=== PATIENT | male | born 1970 | race Caucasian/White ===

== ENCOUNTER 2022-11-22 09:43 | Outpatient (CLI) | payer BC, SELFPAY ==
[2022-11-22 15:35] LABS: Basophils Percent Auto 0.7 % (0.2-1.2); Eosinophils Absolute Auto 0.2 K/mm3 (0-0.3); Eosinophils Percent Auto 3.3 % (0-4.4); Hemoglobin 15.3 g/dL (14.0-18.0); Immature Granulocyte Absolute 0.01 K/mm3 (0.00-0.031); Immature Granulocyte Percent A 0.2 % (0-0.5); Lymphocytes Absolute Auto 1.19 K/mm3 (0.9-3.2); Lymphocytes Percent Auto 21.7 % (18.3-44.2); Mean Corpuscular HGB Conc 33.3 g/dl (32-36); Mean Corpuscular Hemoglobin 30.2 pg (26-34); Mean Corpuscular Volume 90.7 fl (80-100); Monocytes Absolute Auto 0.5 K/mm3 (0.1-0.6); Monocytes Percent Auto 8.9 % (2.6-8.5); Neutrophils Absolute Auto 3.6 K/mm3 (1.3-6.7); Neutrophils Percent Auto 65.2 % (45.5-73.1); Platelet Count Result 241 k/mm3 (150-375); Red Blood Count 5.07 M/mm3 (4.6-6.20); Red Cell Distribution Width 13.2 % (11.5-14.5); White Blood Count 5.5 K/mm3 (4.5-10.0)
[2022-11-22 18:54] LABS: Alanine Aminotransferase 29 U/L (6-50); Albumin Level 4.6 g/dL (3.5-5.1); Alkaline Phosphatase 67 U/L (38-126); Anion Gap 7 mmol/L (8-16); Aspartate Amino Transferase 30 U/L (17-59); Bilirubin,Total 0.5 mg/dL (0.2-1.3); Blood Urea Nitrogen 15 mg/dL (9-20); Carbon Dioxide 28 mmol/L (22-30); Chloride 105 mmol/L (98-107); Cholesterol 240 mg/dL (0-200); Estimated Glomerular Filt Rate > 60; Glucose 95 mg/dL (65-110); HDL Direct 39 mg/dL; Potassium 3.9 mmol/L (3.4-5.0); Sodium 140 mmol/L (137-145); Triglycerides 167 mg/dL (<150)
[2022-11-22 19:05] LABS: LDL Cholesterol Direct 146 mg/dL
[2022-11-22 19:24] LABS: Prostate Specific Antigen 0.4 ng/mL (< OR = 4.0)
== END 2022-11-22 09:44 | disposition home or self-care (01) ==
LOC: ANHGOSHLAB 09:45
PROVIDERS: PCP Internal Medicine; Visit Provider Nurse Practitioner
DX: Z12.5 Encounter for screening for malignant neoplasm of prostate (principal); I10 Essential (primary) hypertension; F17.210 Nicotine dependence, cigarettes, uncomplicated
CPT/HCPCS: 36415; 80053; 80061; 84153; 85025; G0103

== ENCOUNTER 2024-08-07 09:10 | Outpatient (CLI) | payer BC, SELFPAY ==
[2024-08-07 12:49] LABS: Basophils Percent Auto 0.5 % (0.2-1.2); Eosinophils Absolute Auto 0.2 K/mm3 (0-0.3); Eosinophils Percent Auto 3.5 % (0-4.4); Hematocrit 41.8 % (42.0-52.0); Hemoglobin 14.1 g/dL (14.0-18.0); Immature Granulocyte Absolute 0.03 K/mm3 (0.00-0.031); Immature Granulocyte Percent A 0.5 % (0-0.5); Lymphocytes Percent Auto 19.3 % (18.3-44.2); Mean Corpuscular HGB Conc 33.7 g/dl (32-36); Mean Corpuscular Hemoglobin 30.7 pg (26-34); Mean Corpuscular Volume 91.1 fl (80-100); Monocytes Absolute Auto 0.6 K/mm3 (0.1-0.6); Neutrophils Absolute Auto 4.2 K/mm3 (1.3-6.7); Neutrophils Percent Auto 67.2 % (45.5-73.1); Platelet Count Result 250 k/mm3 (150-375); Red Blood Count 4.59 M/mm3 (4.6-6.20); Red Cell Distribution Width 12.9 % (11.5-14.5); White Blood Count 6.2 K/mm3 (4.5-10.0)
[2024-08-07 13:35] LABS: Alanine Aminotransferase 32 U/L (6-50); Albumin Level 4.2 g/dL (3.5-5.1); Alkaline Phosphatase 63 U/L (38-126); Anion Gap 9 mmol/L (4-12); Aspartate Amino Transferase 38 U/L (17-59); Bilirubin,Total 0.4 mg/dL (0.2-1.3); Blood Urea Nitrogen 22 mg/dL (9-20); Calcium 9.3 mg/dL (8.4-10.2); Carbon Dioxide 29 mmol/L (22-30); Chloride 101 mmol/L (98-107); Cholesterol 227 mg/dL (0-200); Estimated Glomerular Filt Rate > 60; Glucose 97 mg/dL (65-110); HDL Direct 41 mg/dL; Potassium 3.9 mmol/L (3.4-5.0); Sodium 139 mmol/L (137-145); Triglycerides 168 mg/dL (<150)
[2024-08-07 13:48] LABS: LDL Cholesterol Direct 133 mg/dL
[2024-08-07 14:05] LABS: Prostate Specific Antigen 0.5 ng/mL (< OR = 4.0)
[2024-08-14 15:58] LABS: Apolipoprotein B 139 mg/dL
== END 2024-08-07 09:11 | disposition home or self-care (01) ==
LOC: ANHGOSHLAB 09:12
PROVIDERS: PCP Nurse Practitioner; Visit Provider Nurse Practitioner
DX: Z13.29 Encounter for screening for other suspected endocrine disorder (principal); Z12.5 Encounter for screening for malignant neoplasm of prostate; E78.5 Hyperlipidemia, unspecified
CPT/HCPCS: 36415; 80053; 80061; 82172; 84153; 85025; G0103

== ENCOUNTER 2024-08-12 10:10 | Outpatient (NON) | payer BC, SELFPAY ==
[2024-08-12 20:01] LABS: Bacteria Urine 4+ /hpf; Need Manual Microscopic Reviewed; RBC Urine >100 /hpf (0-2); Squamous Epithelial Cell Urine Occasional /hpf (Few); WBC Urine >100 /hpf (0-3)
[2024-08-12 20:05] LABS: Add Urine Microscopic? YES; Appearance Urine Turbid (Clear); Bilirubin Urine Negative (Negative); Blood Urine 3+ (Negative); Color Urine Amber (Yellow); Glucose Urine UA Negative (Negative); Ketones Urine Negative (Negative); Leukocyte Esterase Ur 3+ LEU/UL (Negative); Nitrate Urine Negative (Negative); Protein Urine 3+ mg/dL (Negative); Specific Grav Ur 1.017 (1.001-1.035); pH Urine 6.5 (5.0-9.0)
== END 2024-08-12 10:11 | disposition home or self-care (01) ==
LOC: ANHGOSHLAB 10:12
PROVIDERS: PCP Nurse Practitioner; Visit Provider Nurse Practitioner
DX: R31.9 Hematuria, unspecified (principal); R10.9 Unspecified abdominal pain; R39.9 Unspecified symptoms and signs involving the genitourinary system
CPT/HCPCS: 81001; 87086

== ENCOUNTER 2024-08-21 10:37 | Inpatient (IN) | payer BC, SELFPAY ==
--- NOTE | ~2024-08-21 | US_ITS ---
EXAMINATION: US retroperitoneal comp DATE: 08/22/2024 10:03 INDICATION: Hydronephrosis. Bladder hematoma. TECHNIQUE: Multiple ultrasound grayscale images of the kidneys were obtained. COMPARISON: CT abdomen and pelvis 08/21/2024 FINDINGS: The right kidney measures 11.1 x 5.9 x 4.6 cm. The left kidney measures 12.0 x 6.6 x 5.3 cm. The kidn eys demonstrate normal parenchymal echogenicity. There is moderate bilateral hydronephrosis. The blad rodriguez is decompressed by a Ogden catheter. There is a small volume of echogenic material in the bladder , consistent with hematoma. The prostate is severely enlarged. IMPRESSION: 1. Moderate bilateral hydronephrosis. 2. Small volume of hematoma in the bladder. 3. Severely enlarged prostate. Reviewed, dictated and finalized at location A. T UTILITY PERSON
--- NOTE | ~2024-08-21 | XR_ITS ---
EXAMINATION: XR fluoroscopy no charge DATE: 08/23/2024 14:28 INDICATION: Tanning Drum Operator imaging prior to urologic procedure. TECHNIQUE: 2 fluoroscopic images of the abdomen and pelvis were obtained during procedure performed b y Dr. Gaines's. Radiologist was not present for the imaging or procedure. The amount of fluoroscopy ti me used during this procedure was 0.1 minutes. COMPARISON: None. FINDINGS: There are couple phleboliths in the left hemipelvis. No other suspicious calcifications in the abdomen or pelvis. Normal bowel gas pattern. IMPRESSION: 1. Couple phleboliths in the left hemipelvis. See procedure note for further detail. Reviewed, dictated and finalized at location B. NEERING TECH IMPRESSION: 1. Couple phleboliths in the left hemipelvis. See procedure note for further de tail.
--- NOTE | ~2024-08-21 | CT_ITS ---
EXAMINATION: CT abdomen pelvis wo con DATE: 08/21/2024 14:07 INDICATION: Flank pain. Acute renal injury. TECHNIQUE: Computed tomography (CT) of the abdomen and pelvis was performed without intravenous contr ast. Automated exposure control and iterative reconstruction technique were employed. The dose-length product was 743.44 mGy-cm. COMPARISON: None. FINDINGS: The visualized portions of the lung bases demonstrate minimal atelectasis. No pleural effus ion. The heart size is normal. No pericardial effusion. There is a small sliding hiatal hernia. The l iver and spleen are normal. There is a gallstone in the gallbladder, which is normal in size. The kaufman creas and adrenal glands are normal. There is moderate right hydronephrosis and hydroureter. There is severe left hydronephrosis and hydroureter. The prostate is severely enlarged. There is hyperdense a cute hematoma in the bladder. There is a Ogden catheter in expected position. There is diverticulosis of the colon without evidence of diverticulitis. There are no dilated loops of bowel. The appendix i s normal. There is no free intraperitoneal fluid. There is bilateral external iliac lymphadenopathy. For example, a right external iliac node measures 2.8 x 2.2 cm. A right common iliac node measures 2. 4 x 2.0 cm. There is severe lower lumbar spondylosis. Small sclerotic lesions in right ilium, right f emoral head, and T12 vertebral body are probably benign bone islands. IMPRESSION: 1. Acute hematoma in the bladder. 2. Moderate right hydronephrosis and hydroureter and severe left hydronephrosis and hydroureter. 3. Severely enlarged prostate. 4. Pelvic lymphadenopathy suspicious for metastatic disease. Reviewed, dictated and finalized at location A. [facility]
[2024-08-21 10:39] VITALS: BP 171/100; PULSE 88; RESP 16; TEMP 36.6; O2SAT 99
[2024-08-21 11:31] LABS: Basophils Percent Auto 0.2 % (0.2-1.2); Eosinophils Absolute Auto 0.1 K/mm3 (0-0.3); Eosinophils Percent Auto 0.7 % (0-4.4); Hematocrit 36.3 % (42.0-52.0); Hemoglobin 12.5 g/dL (14.0-18.0); Immature Granulocyte Absolute 0.03 K/mm3 (0.00-0.031); Immature Granulocyte Percent A 0.3 % (0-0.5); Lymphocytes Absolute Auto 1.04 K/mm3 (0.9-3.2); Lymphocytes Percent Auto 10.6 % (18.3-44.2); Mean Corpuscular HGB Conc 34.4 g/dl (32-36); Mean Corpuscular Hemoglobin 30.7 pg (26-34); Mean Corpuscular Volume 89.2 fl (80-100); Mean Platelet Volume 9.9 fl (7.4-10.4); Monocytes Percent Auto 9.7 % (2.6-8.5); Neutrophils Absolute Auto 7.7 K/mm3 (1.3-6.7); Neutrophils Percent Auto 78.5 % (45.5-73.1); Platelet Count Result 248 k/mm3 (150-375); Red Blood Count 4.07 M/mm3 (4.6-6.20); Red Cell Distribution Width 12.5 % (11.5-14.5); White Blood Count 9.8 K/mm3 (4.5-10.0)
[2024-08-21 11:44] LABS: Add Urine Microscopic? YES; Appearance Urine Turbid (Clear); Bacteria Urine 3+ /hpf; Bilirubin Urine Negative (Negative); Blood Urine 3+ (Negative); Glucose Urine UA Negative (Negative); Ketones Urine Trace mg/dL (Negative); Leukocyte Esterase Ur 2+ LEU/UL (Negative); Need Manual Microscopic Reviewed; Nitrate Urine Negative (Negative); Non Pathogenic Casts 0-2; Protein Urine 3+ mg/dL (Negative); RBC Urine >100 /hpf (0-2); Specific Grav Ur 1.009 (1.001-1.035); Squamous Epithelial Cell Urine Occasional /hpf (Few); Urobilinogen Urine 0.2 mg/dL (<2.0); WBC Urine >100 /hpf (0-3)
[2024-08-21 11:44] LABS: Alanine Aminotransferase 26 U/L (6-50); Albumin Level 4.2 g/dL (3.5-5.1); Alkaline Phosphatase 70 U/L (38-126); Anion Gap 13 mmol/L (4-12); Aspartate Amino Transferase 34 U/L (17-59); Bilirubin,Total 0.6 mg/dL (0.2-1.3); Blood Urea Nitrogen 43 mg/dL (9-20); Calcium 9.3 mg/dL (8.4-10.2); Carbon Dioxide 28 mmol/L (22-30); Chloride 97 mmol/L (98-107); Estimated CRCL calculation 16 ml/min; Estimated Glomerular Filt Rate 12; Glucose 89 mg/dL (65-110); Lipase 61 U/L (23-300); Potassium 3.6 mmol/L (3.4-5.0); Sodium 138 mmol/L (137-145)
[2024-08-21 11:46] LABS: Color Urine Other (Yellow)
--- NOTE | 2024-08-21 11:58 | ED.GENADULT ---
HPI - General Adult General Chief complaint: Urogenital-Male Stated complaint: right klower back pain Time Seen by Provider: 08/21/24 11:10 History of Present Illness HPI narrative: 54-year-old male presents emergency department for evaluation for urinary retention and right flank pain. Patient states over the past few days he has had increased right flank pain. Patient states he does have issues with frequent urination at night time. Patient does describe suprapubic abdominal pain. Related Data Home Medications Medication Instructions Recorded Confirmed cetirizine 10 mg tablet (Zyrtec) 10 mg PO DAILY 08/21/24 08/21/24 Allergies Allergy/AdvReac Type Severity Reaction Status Date / Time banana Allergy Mild Itching Verified 08/21/24 14:21 No Known Drug Allergies Allergy Unknown Verified 08/21/24 14:21 Review of Systems Review of Systems: All systems reviewed & are unremarkable except as noted in HPI and below PMFSH Past Medical History Medical History HTN (hypertension) Hyperlipidemia Kidney stones Surgical History Surgical History No significant past surgical history Family History Family History Mother CHF (congestive heart failure) Social History Social History Years smoked: 17 Smoking status: Current every day smoker Alcohol intake: current Alcohol use details: occasionally Substance use: current Substance use type: marijuana Do You Feel Safe in your Home?: Yes Lack of Transportation: No Lack of Food: Never True Current Housing: I Have Housing Concerned About Future Housing: No Difficulty Paying Gas/Electric Bills: No Difficulty Paying for Meds: No Currently Unemployed: No Education: High School Diploma/GED Difficulty w/ Childcare or Family Care: No Spiritual care concerns: No Exam Narrative: APPEARANCE: Well appearing, no pain, no distress, well-nourished. HEAD: normocephalic, atraumatic. EYES: PERRLA/EOMI, conjunctivae clear. NOSE: Normal no drainage EARS:TMS clear with good light reflex. THROAT: Pharynx clear, no exudate. NECK: Supple. No adenopathy, no masses. RESPIRATORY: Airway patent, respirations nonlabored. Clear to auscultation bilaterally, no rales, rhonchi, wheezing. CARDIOVASCULAR: Regular rate and rhythm without murmurs rubs or gallops. ABDOMINAL: Soft, nontender, nondistended, normal bowel sounds MUSCULOSKELETAL: Moves all extremities. Strength/ROM intact, No edema, No calf tenderness. NEURO: Alert. Cranial nerves II through XII intact. Course Vital Signs Vital signs: Vital Signs Temperature 97.8 F 08/21/24 10:39 Pulse Rate 88 08/21/24 10:39 Respiratory Rate 16 08/21/24 10:39 Blood Pressure 171/100 H 08/21/24 10:39 Pulse Oximetry 99 08/21/24 10:39 Temperature 98.1 F 08/21/24 14:00 Pulse Rate 68 08/21/24 14:00 Respiratory Rate 18 08/21/24 14:00 Blood Pressure 120/45 L 08/21/24 14:00 Pulse Oximetry 98 08/21/24 14:00 Oxygen Delivery Room Air 08/21/24 15:43 Medical Decision Making MDM Narrative Medical decision making narrative: 54-year-old male presents emergency department for evaluation for urinary pain and difficulty urinating. Patient is afebrile with no leukocytosis and hemoglobin of 12.5. Patient does have significant acute kidney injury with a creatinine of 5.2 and BUN of 43. patient did have greater than 500 mL postvoid residual urine. Ogden catheter was placed. Urine was significant for urinary tract infection patient was started on antibiotics, urine cultures pending. Nephrology was consulted due to the acute kidney injury. patient was admitted to the hospitalist. All questions concerns were addressed to the patient. Differential Diagnosis Differential Diagnosis: Kidney stone, UTI, obstructive uropathy, urinary retention Vital Signs Vital Signs: Vital Signs Temperature 97.8 F 08/21/24 10:39 Pulse Rate 88 08/21/24 10:39 Respiratory Rate 16 08/21/24 10:39 Blood Pressure 171/100 H 08/21/24 10:39 Pulse Oximetry 99 08/21/24 10:39 Temperature 98.1 F 08/21/24 14:00 Pulse Rate 68 08/21/24 14:00 Respiratory Rate 18 08/21/24 14:00 Blood Pressure 120/45 L 08/21/24 14:00 Pulse Oximetry 98 08/21/24 14:00 Oxygen Delivery Room Air 08/21/24 15:43 Lab Data Lab results reviewed: Yes I reviewed the patient's lab results. 08/21/24 11:22 08/21/24 11:22 Labs: Lab Results 08/21/24 08/21/24 Range/Units 11:21 11:22 WBC 9.8 (4.5-10.0) K/mm3 RBC 4.07 L (4.6-6.20) M/mm3 Hgb 12.5 L (14.0-18.0) g/dL Hct 36.3 L (42.0-52.0) % MCV 89.2 (80-100) fl MCH 30.7 (26-34) pg MCHC 34.4 (32-36) g/dl RDW 12.5 (11.5-14.5) % Plt Count 248 (150-375) k/mm3 MPV 9.9 (7.4-10.4) fl Immature Gran % (Auto) 0.3 (0-0.5) % Neut % (Auto) 78.5 H (45.5-73.1) % Lymph % (Auto) 10.6 L (18.3-44.2) % Wilkin % (Auto) 9.7 H (2.6-8.5) % Eos % (Auto) 0.7 (0-4.4) % Baso % (Auto) 0.2 (0.2-1.2) % Lymph # (Auto) 1.04 (0.9-3.2) K/mm3 Wilkin # (Auto) 1.0 H (0.1-0.6) K/mm3 Eos # (Auto) 0.1 (0-0.3) K/mm3 Baso # (Auto) 0.0 (0.0-0.1) K/mm3 Abs Immat Gran (auto) 0.03 (0.00-0.031) K/mm3 Absolute Neuts (auto) 7.7 H (1.3-6.7) K/mm3 Absolute Nucleated RBC 0.000 (0.0-0.012) K/mm3 Nucleated RBC % 0.0 (0.0-0.2) % Sodium 138 (137-145) mmol/L Potassium 3.6 (3.4-5.0) mmol/L Chloride 97 L (98-107) mmol/L Carbon Dioxide 28 (22-30) mmol/L Anion Gap 13 H (4-12) mmol/L BUN 43 H D (9-20) mg/dL Creatinine 5.20 H (0.7-1.3) mg/dL Estim Creat Clear Calc 16 ml/min Estimated GFR 12 L (59 - ) Glucose 89 (65-110) mg/dL Calcium 9.3 (8.4-10.2) mg/dL Total Bilirubin 0.6 (0.2-1.3) mg/dL AST 34 (17-59) U/L ALT 26 (6-50) U/L Alkaline Phosphatase 70 (38-126) U/L Total Protein 7.0 (6.3-8.2) g/dL Albumin 4.2 (3.5-5.1) g/dL Lipase 61 (23-300) U/L Urine Color Other (Yellow) Urine Appearance Turbid H (Clear) Urine pH 6.0 (5.0-9.0) Ur Specific [place] 1.009 (1.001-1.035) Urine Protein 3+ H (Negative) mg/dL Urine Glucose (UA) Negative (Negative) mg/dL Urine Ketones Trace H (Negative) mg/dL Ur Blood (Man) 3+ H (Negative) Urine Nitrate Negative (Negative) Urine Bilirubin Negative (Negative) Urine Urobilinogen 0.2 (<2.0) mg/dL Add Ur Microanalysis Reviewed Leukocyte Esterase Rfl 2+ H (Negative) EVONNE/UL Urine RBC >100 H (0-2) /hpf Urine WBC >100 H (0-3) /hpf Ur Squamous Epith Cells Occasional (Few) /hpf Urine Bacteria 3+ H /hpf Urine Casts 0-2 Discharge Plan Discharge Clinical Impression: Urinary retention, Hematuria, Acute renal failure, Urinary tract infection Patient Disposition: Still a Patient Condition: Serious
[2024-08-21] MEDS: TAMSULOSIN HCL 0.4 MG CAPSULE PO (12:51)
[2024-08-21 13:21] VITALS: BP 158/108; PULSE 85; RESP 18; O2SAT 96
[2024-08-21] MEDS: SODIUM CHLORIDE 0.9% IV 1,000 ML 999 ML IV CONT (13:21)
--- NOTE | 2024-08-21 13:40 | PM.IMHP ---
H&P: HPI History of Present Illness Date/Time: 08/21/24 13:40 Chief Complaint: Flank Pain Narrative: 54 y/o M presents here with flank pain with PMH of HTN, HLD, and kidney stones. The patient presents here from home for further evaluation of right flank pain. He reports onset approximately 3-4 days ago. Accompanied by suprapubic abdominal pain, frequent urination, difficulty initiating stream, constipation. Last BM was 4-5 days ago, has had reduced appetite in the last few days, did pass very small BM this evening. Denies fever, chills, body chills, or diarrhea. Patient originally sought care with his PCP on 08/12/2024 for similar complaints including urinary issues, hematuria, urinary frequency, and suprapubic pain intermittently. UA showed UTI, however urine culture was negative. He was started on Cipro b.i.d. x5 days. The patient reports he had taken 7 doses before he was contacted that the UC was negative. Recent Cologuard was negative. No family history of cancer. Initial VS at presentation: 97.8? F, HR 88, RR 16, 171/100, and 100% on RA. ED workup showed: No leukocytosis, hemoglobin 12.5 (previously 14.1, creatinine 5.2 and GFR 12 (previously 1.2 and normal GFR on 08/07/2024), and UA suspicious for UTI. Review of Systems Review of Systems: All systems reviewed & are unremarkable except as noted in HPI and below PMFSH Past Medical History Medical History HTN (hypertension) Hyperlipidemia Kidney stones Surgical History Surgical History No significant past surgical history Family History Family History Mother CHF (congestive heart failure) Social History Social History Years smoked: 17 Smoking status: Current every day smoker Alcohol intake: current Alcohol use details: occasionally Substance use: current Substance use type: marijuana Do You Feel Safe in your Home?: Yes Lack of Transportation: No Lack of Food: Never True Current Housing: I Have Housing Concerned About Future Housing: No Difficulty Paying Gas/Electric Bills: No Difficulty Paying for Meds: No Currently Unemployed: No Education: High School Diploma/GED Difficulty w/ Childcare or Family Care: No Spiritual care concerns: No Meds Home Medications and Allergies Home Medications Medication Instructions Recorded Confirmed Type lisinopril 20 1 tablet PO DAILY #90 tabs 05/30/24 08/21/24 Rx mg-hydrochlorothiazide 12.5 mg tablet atorvastatin 10 mg tablet 10 mg PO QHS #90 tabs 08/12/24 08/21/24 Rx cetirizine 10 mg tablet (Zyrtec) 10 mg PO DAILY 08/21/24 08/21/24 History Allergies Allergy/AdvReac Type Severity Reaction Status Date / Time banana Allergy Mild Itching Verified 08/21/24 14:21 No Known Drug Allergies Allergy Unknown Verified 08/21/24 14:21 Vital Signs Vital Signs - 24 hr 08/21/24 10:39 08/21/24 13:21 Temperature 97.8 F Pulse Rate 88 85 Respiratory Rate 16 18 Blood Pressure 171/100 H 158/108 H Pulse Oximetry 99 96 Exam Narrative: red tinged, clot in lucas/bag. otherwise benign. Const: General: no acute distress and uncomfortable Other: , male, nontoxic appearance HENMT: Face/Nose/Sinus: Normal nares present Mouth: Yes moist mucous membranes Eyes: General: appearance normal, both eyes and all related structures Sclera: sclerae normal Pupils: Equal, round and reactive pupils present EOM: EOMs intact bilaterally Resp: Effort & Inspection: normal respiratory effort Auscultation: clear to auscultation bilaterally Cardio: Rate: regular rate Rhythm: regular rhythm Other: S1-S2 present without murmur, rub, ectopy GI: Other: Abdomen soft, nondistended, nontender : Other: Improved suprapubic tenderness. Urinary Catheter: Urinary Catheter: patent and draining, urine red and urine with clots Skin: General skin exam: normal color and no rashes or lesions noted Wounds: no wounds Neuro: Speech: normal speech Motor exam (neuro): 5/5 motor strength present throughout Sensory Exam: normal sensation Other: A&O x4 Extrem: General: normal to inspection Psych: Mental Status: mental status grossly normal Affect: normal affect Other: Good insight and judgment, pleasant H&P: Results Labs Labs: Short CBC 08/21/24 Range/Units 11:22 WBC 9.8 (4.5-10.0) K/mm3 Hgb 12.5 L (14.0-18.0) g/dL Hct 36.3 L (42.0-52.0) % Plt Count 248 (150-375) k/mm3 BMP 08/21/24 11:22 Sodium 138 Potassium 3.6 Chloride 97 L Carbon Dioxide 28 BUN 43 H D Creatinine 5.20 H Glucose 89 Calcium 9.3 Liver Function 08/21/24 Range/Units 11:22 Total Bilirubin 0.6 (0.2-1.3) mg/dL AST 34 (17-59) U/L ALT 26 (6-50) U/L Alkaline Phosphatase 70 (38-126) U/L Albumin 4.2 (3.5-5.1) g/dL Urine 08/21/24 Range/Units 11:21 Urine Color Other (Yellow) Urine Appearance Turbid H (Clear) Urine pH 6.0 (5.0-9.0) Ur Specific [place] 1.009 (1.001-1.035) Urine Protein 3+ H (Negative) mg/dL Urine Glucose (UA) Negative (Negative) mg/dL Assessment and Plan Assessment and plan (1) Acute renal failure: Qualifiers: Acute renal failure type: unspecified Qualified Code(s): N17.9 - Acute kidney failure, unspecified Code(s): N17.9 - Acute kidney failure, unspecified Status: Acute Assessment and Plan: - bladder scan in ED showed retained 500 mL post-void. Lucas placed and Flomax initiated, will need outpatient urology follow-up. - CT abd/pelvis w/o con 1. Acute hematoma in the bladder. 2. Moderate right hydronephrosis and hydroureter and severe left hydronephrosis and hydroureter. 3. Severely enlarged prostate. 4. Pelvic lymphadenopathy suspicious for metastatic disease. - add CK, urine sodium, protein/creatinine - UA showed 3+ protein and 3+ blood - monitor I&Os - stop felipe inhibitors and diuretics as appropriate (on lisinopril-HCTZ) - nephrology consultation, awaiting recs (2) UTI (urinary tract infection): Qualifiers: Hematuria presence: with hematuria Urinary tract infection type: acute cystitis Qualified Code(s): N30.01 - Acute cystitis with hematuria Code(s): N39.0 - Urinary tract infection, site not specified Status: Suspected Assessment and Plan: - did not meet SIRS criteria - recent outpatient abx Cipro BID x5 days on 08/12 - no leukocytosis, add crp - UA: Turbid, 3+ protein, trace ketones, 3+ blood, 2+ leuks, greater than 100 RBC and WBC, occasional epithelial cells, 3+ bacteria - UC pending - previous micro reviewed, culture from 08/12/2024 showed no growth. - started on Ceftriaxone on 08/11 (3) Urinary retention: Code(s): R33.9 - Retention of urine, unspecified Status: Acute Assessment and Plan: - Lucas placed - monitor I&Os - Flomax initiated - urology consulted - suspect lower obstruction secondary to BPH, low suspicion for UTI or hematuria/clots as etiology (4) Hematoma of bladder wall: Qualifiers: Encounter type: initial encounter Qualified Code(s): S37.22XA - Contusion of bladder, initial encounter Code(s): S37.22XA - Contusion of bladder, initial encounter Status: Acute Assessment and Plan: - CT abd/pelvis: acute hematoma in the bladder - urology consulted for retention and new bladder hematoma seen on CT, will need CBI (5) HTN (hypertension): Qualifiers: Hypertension type: primary hypertension Qualified Code(s): I10 - Essential (primary) hypertension Code(s): I10 - Essential (primary) hypertension Status: Chronic Assessment and Plan: - chronic, currently 158/108 - home medications: hold lisinopril-HCTZ given current renal failure, add hydralazine prn for BP greater than 180/90. Has not been on amlodipine prior to current regimen if need for med change occurs given acute renal failure. - monitor Plan Diet: Renal GI Prophylaxis: Not currently indicated DVT Prophylaxis: SCDs Lines: Peripheral Code Status: Full code Quality VTE Prophylaxis VTE prophylaxis: mechanical ordered Hospitalist MIPS Advance Care Plan I have confirmed that the patient's Advanced Care Plan is present, code status is documented, or surrogate decision maker is listed in patient medical record.: Yes Medication Reconciliation I have utilized all available resources to obtain, update and review the patients current medications (includes all prescriptions, OTC, herbals, cannabis, and nutritional supplements).: Yes
[2024-08-21 13:50] VITALS: BMI 27.3
[2024-08-21 14:00] VITALS: BP 120/45; PULSE 68; RESP 18; TEMP 36.7; O2SAT 98
--- NOTE | 2024-08-21 14:15 | ADMGEN ---
This patient, Mikael Canada, was admitted to 3 [facility] Surg Room 309-01. Patient/family oriented to hospital policies and general routines including ID bracelet, bed and alarms, visiting hours, pain management, procedures, bathroom and other care routines, personal items, smoking policy, room service/diet, and visiting hours. Information on how to activate the Rapid Response Team has been discussed. Patient/Family are encouraged to report perceived risks to care and to ask questions if they do not understand what they are told or what they should do.
[2024-08-21 15:23] LABS: Creatine Kinase 57 U/L (55-170)
[2024-08-21] MEDS: SODIUM CHLORIDE 0.9% IV 1,000 ML 125 ML IV CONT ×2 (15:27→23:26)
[2024-08-21] MEDS: NACL 0.9% IRRIGATION POUR BOTTLE 500 ML 1000 ML (16:45)
[2024-08-21] MEDS: LIDOCAINE HCL 2% GEL UROJET 10 ML PKG MUCOUS MEM (16:45)
[2024-08-21] MEDS: MORPHINE SULFATE (*CRX) 2 MG/ML INJ IV PUSH ×2 (17:08→18:23)
--- NOTE | 2024-08-21 17:19 | WPDURCON ---
Assessment and Plan Assessment and plan (1) Urinary retention: Code(s): R33.9 - Retention of urine, unspecified Status: Acute (2) Hematuria: Qualifiers: Hematuria type: unspecified type Qualified Code(s): R31.9 - Hematuria, unspecified Code(s): R31.9 - Hematuria, unspecified Status: Acute (3) Acute renal failure: Qualifiers: Acute renal failure type: unspecified Qualified Code(s): N17.9 - Acute kidney failure, unspecified Code(s): N17.9 - Acute kidney failure, unspecified Status: Acute Assessment and Plan: 54-year-old gentleman with urinary traction from significantly enlarged prostate resulting in clot retention and bilateral hydroureteronephrosis and renal failure. Plan -[address] catheter placed continue CBI -plan renal and bladder ultrasound in the morning to assess hydronephrosis and assess for residual clots in the bladder. -continue to closely monitor laboratory findings -patient reports a normal PSA from his primary care physician recently. Will request these levels. -patient will likely need intervention for BPH the future Urology Consult Note HPI Date Seen: 08/21/24 Requesting Physician: Santa Parikh MD Primary Care Provider: Luana Merchant NP Consult Narrative Narrative: Mikael Canada is a 54 year old male who presented to the ER with right-sided flank pain and hematuria. The patient's final CT scan to have a distended bladder with clot and bilateral hydronephrosis. Laboratory findings were consistent with acute renal insufficiency. A Ogden catheter was placed after 3 attempts by the nursing staff. [facility] Past Medical History Medical History HTN (hypertension) Hyperlipidemia Kidney stones Surgical History Surgical History No significant past surgical history Family History Family History Mother CHF (congestive heart failure) Social History Social History Years smoked: 17 Smoking status: Current every day smoker Alcohol intake: current Alcohol use details: occasionally Substance use: current Substance use type: marijuana Do You Feel Safe in your Home?: Yes Lack of Transportation: No Lack of Food: Never True Current Housing: I Have Housing Concerned About Future Housing: No Difficulty Paying Gas/Electric Bills: No Difficulty Paying for Meds: No Currently Unemployed: No Education: High School Diploma/GED Difficulty w/ Childcare or Family Care: No Spiritual care concerns: No Meds Home Medications and Allergies Home Medications Medication Instructions Recorded Confirmed Type lisinopril 20 1 tablet PO DAILY #90 tabs 05/30/24 08/21/24 Rx mg-hydrochlorothiazide 12.5 mg tablet atorvastatin 10 mg tablet 10 mg PO QHS #90 tabs 08/12/24 08/21/24 Rx cetirizine 10 mg tablet (Zyrtec) 10 mg PO DAILY 08/21/24 08/21/24 History Allergies Allergy/AdvReac Type Severity Reaction Status Date / Time banana Allergy Mild Itching Verified 08/21/24 14:21 No Known Drug Allergies Allergy Unknown Verified 08/21/24 14:21 Vital Signs Vital Signs - 24 hr 08/21/24 10:39 08/21/24 13:21 08/21/24 15:43 Temperature 36.6 C Pulse Rate 88 85 Respiratory Rate 16 18 Blood Pressure 171/100 H 158/108 H Pulse Oximetry 99 96 Oxygen Delivery Room Air Exam Narrative: The patient is awake alert. He is no acute distress previously present soft nontender nondistended he has a Ogden catheter in place draining dark red urine. Procedure: Previous Ogden catheter was removed. The patient was prepped and draped. A 22 F hematuria catheter was inserted. There was return of [id number] of clot this point the bladder is irrigated and aspirated nicely with clear urine. CBI was started Results Labs 08/21/24 11:22 08/21/24 11:22 Labs: Short CBC 08/21/24 Range/Units 11:22 WBC 9.8 (4.5-10.0) K/mm3 Hgb 12.5 L (14.0-18.0) g/dL Hct 36.3 L (42.0-52.0) % Plt Count 248 (150-375) k/mm3 BMP 08/21/24 11:22 Sodium 138 Potassium 3.6 Chloride 97 L Carbon Dioxide 28 BUN 43 H D Creatinine 5.20 H Glucose 89 Calcium 9.3 Cardiac Enzymes 08/21/24 Range/Units 14:47 Total Creatine Kinase 57 (55-170) U/L Liver Function 08/21/24 Range/Units 11:22 Total Bilirubin 0.6 (0.2-1.3) mg/dL AST 34 (17-59) U/L ALT 26 (6-50) U/L Alkaline Phosphatase 70 (38-126) U/L Albumin 4.2 (3.5-5.1) g/dL Urine 08/21/24 Range/Units 11:21 Urine Color Other (Yellow) Urine Appearance Turbid H (Clear) Urine pH 6.0 (5.0-9.0) Ur Specific [place] 1.009 (1.001-1.035) Urine Protein 3+ H (Negative) mg/dL Urine Glucose (UA) Negative (Negative) mg/dL DATE: 08/21/2024 14:07 INDICATION: Flank pain. Acute renal injury. TECHNIQUE: Computed tomography (CT) of the abdomen and pelvis was performed without intravenous contrast. Automated exposure control and iterative reconstruction technique were employed. The dose-length product was 743.44 mGy-cm. COMPARISON: None. FINDINGS: The visualized portions of the lung bases demonstrate minimal atelectasis. No pleural effusion. The heart size is normal. No pericardial effusion. There is a small sliding hiatal hernia. The liver and spleen are normal. There is a gallstone in the gallbladder, which is normal in size. The pancreas and adrenal glands are normal. There is moderate right hydronephrosis and hydroureter. There is severe left hydronephrosis and hydroureter. The prostate is severely enlarged. There is hyperdense acute hematoma in the bladder. There is a Ogden catheter in expected position. There is diverticulosis of the colon without evidence of diverticulitis. There are no dilated loops of bowel. The appendix is normal. There is no free intraperitoneal fluid. There is bilateral external iliac lymphadenopathy. For example, a right external iliac node measures 2.8 x 2.2 cm. A right common iliac node measures 2.4 x 2.0 cm. There is severe lower lumbar spondylosis. Small sclerotic lesions in right ilium, right femoral head, and T12 vertebral body are probably benign bone islands. IMPRESSION: 1. Acute hematoma in the bladder. 2. Moderate right hydronephrosis and hydroureter and severe left hydronephrosis and hydroureter. 3. Severely enlarged prostate. 4. Pelvic lymphadenopathy suspicious for metastatic disease. Reviewed, dictated and finalized at location A. EM FUSER TENDER
[2024-08-21] MEDS: ATORVASTATIN 10 MG TABLET PO (21:03)
[2024-08-21] MEDS: SENNA/DOCUSATE SODIUM TABLET 1 TAB PO (21:03)
[2024-08-21 21:06] VITALS: BP 158/98; PULSE 83; RESP 16; TEMP 37.2; O2SAT 96
[2024-08-22 05:00] VITALS: BP 150/88; PULSE 74; RESP 16; TEMP 37; O2SAT 96
[2024-08-22 06:25] LABS: Basophils Percent Auto 0.1 % (0.2-1.2); Eosinophils Absolute Auto 0.1 K/mm3 (0-0.3); Eosinophils Percent Auto 0.7 % (0-4.4); Hematocrit 30.2 % (42.0-52.0); Hemoglobin 10.5 g/dL (14.0-18.0); Immature Granulocyte Absolute 0.04 K/mm3 (0.00-0.031); Immature Granulocyte Percent A 0.4 % (0-0.5); Lymphocytes Absolute Auto 0.87 K/mm3 (0.9-3.2); Lymphocytes Percent Auto 9.1 % (18.3-44.2); Mean Corpuscular HGB Conc 34.8 g/dl (32-36); Mean Corpuscular Hemoglobin 31.2 pg (26-34); Mean Corpuscular Volume 89.6 fl (80-100); Mean Platelet Volume 10.2 fl (7.4-10.4); Monocytes Percent Auto 10.6 % (2.6-8.5); Neutrophils Absolute Auto 7.5 K/mm3 (1.3-6.7); Neutrophils Percent Auto 79.1 % (45.5-73.1); Platelet Count Result 214 k/mm3 (150-375); Red Blood Count 3.37 M/mm3 (4.6-6.20); Red Cell Distribution Width 12.6 % (11.5-14.5); White Blood Count 9.5 K/mm3 (4.5-10.0)
[2024-08-22] MEDS: SODIUM CHLORIDE 0.9% IV 1,000 ML 125 ML IV CONT ×2 (06:49→16:42)
--- NOTE | 2024-08-22 06:56 | P.PNUR_ITS ---
Progress Note: A&P Assessment and Plan (1) Hematoma of bladder wall: Qualifiers: Encounter type: initial encounter Qualified Code(s): S37.22XA - Contusion of bladder, initial encounter Code(s): S37.22XA - Contusion of bladder, initial encounter Status: Acute (2) Urinary retention: Code(s): R33.9 - Retention of urine, unspecified Status: Acute (3) UTI (urinary tract infection): Qualifiers: Urinary tract infection type: acute cystitis Hematuria presence: with hematuria Qualified Code(s): N30.01 - Acute cystitis with hematuria Code(s): N39.0 - Urinary tract infection, site not specified Status: Suspected (4) Acute renal failure: Code(s): N17.9 - Acute kidney failure, unspecified Status: Acute (5) Hematuria: Code(s): R31.9 - Hematuria, unspecified Status: Acute Assessment and Plan: * Urine clear on CBI * Await morning labs and renal/bladder ultrasound. If no signs of improvement on both will consider cystoscopy with clot evacuation and ureteral stent placement (bilateral) today Subjective Subjective Date/Time Seen: 08/22/24 06:56 Interval history: Comfortable, urine clear - draining well Review of Systems Cardiovascular: Cardiovascular: Denies chest pain, Denies lightheadedness, Denies palpitations and Denies dyspnea Respiratory: Respiratory: Denies dyspnea Gastrointestinal: Gastrointestinal: Denies diarrhea, Denies nausea and Denies vomiting Genitourinary: Genitourinary: Denies hematuria and Denies dysuria Endocrine: Endocrine: Denies palpitations Exam Const: General: no acute distress Resp: Effort & Inspection: normal respiratory effort GI: Inspection: non-distended GI Palp: No abdominal tenderness and No Guarding due to palpation present (GI) Auscultation: normal bowel sounds Urinary Catheter: Urinary Catheter: patent and draining and urine clear Objective Data Vital Signs Vital Signs: Vital Signs - 24 hr 08/21/24 10:39 08/21/24 13:21 08/21/24 15:43 Temperature 97.8 F Pulse Rate 88 85 Respiratory Rate 16 18 Blood Pressure 171/100 H 158/108 H Pulse Oximetry 99 96 Oxygen Delivery Room Air 08/21/24 14:00 08/21/24 21:06 08/21/24 20:00 Temperature 98.1 F 98.9 F Pulse Rate 68 83 Respiratory Rate 18 16 Blood Pressure 120/45 L 158/98 H Pulse Oximetry 98 96 Oxygen Delivery Room Air 08/22/24 05:00 Temperature 98.6 F Pulse Rate 74 Respiratory Rate 16 Blood Pressure 150/88 H Pulse Oximetry 96 Oxygen Delivery Intake/Output Intake/Output: Intake & Output 08/19/24 08/20/24 08/21/24 08/22/24 23:59 23:59 23:59 23:59 Intake Total 2147.9 922.9 Output Total 100 Balance 2047.9 922.9 Meds/Results Medications: Active Medications Generic Name Dose Route Start Last Admin Trade Name Freq PRN Reason Stop Dose Admin Acetaminophen 650 mg 08/21/24 14:21 Acetaminophen 325 Mg Tablet PO Q6H PRN Mild Pain (1-3) or Fever Hydrocodone Bitart/Acetaminophen 1 tab 08/21/24 18:11 Hydrocodone/Acetaminophen (*Crx) 5-325 Mg Tablet PO Q4H PRN Pain Rated 4-6 Atorvastatin Calcium 10 mg 08/21/24 21:00 08/21/24 21:03 Atorvastatin 10 Mg Tablet PO 10 mg QHS CHEN Administration Hydralazine HCl 10 mg 08/21/24 14:23 Hydralazine Hcl 20 Mg/Ml Vial IV PUSH Q8H PRN BP greater than 180/90 Ceftriaxone Sodium 1 gm in 50 mls @ 100 mls/hr 08/22/24 09:00 Rocephin 1 Gm/Ns 50 Ml IVPB Q24H CHEN Sodium Chloride 1,000 mls @ 125 mls/hr 08/21/24 12:50 08/22/24 06:49 Normal Saline Iv IV CONT 125 mls/hr .Q8H CHEN Administration Loratadine 10 mg 08/22/24 09:00 Loratadine 10 Mg Tablet PO QAM CHEN Morphine Sulfate 2 mg 08/21/24 18:11 08/21/24 18:23 Morphine Sulfate (*Crx) 2 Mg/Ml Inj IV PUSH 2 mg Q4H PRN Administration Pain Rated 7-10 Polyethylene Glycol 17 gm 08/21/24 18:51 Polyethylene Glycol 3350 17 Gm Powd.Pack PO QAM PRN Constipation Senna/Docusate Sodium 1 tab 08/21/24 21:00 08/21/24 21:03 Senna/Docusate Sodium Tablet PO 1 tab HS [facility] Administration Tamsulosin HCl 0.4 mg 08/22/24 09:00 Tamsulosin Hcl 0.4 Mg Capsule PO QAM [facility] Radiology Results: ITS Impressions Abdomen/Pelvis CT 08/21/24 14:12 IMPRESSION: 1. Acute hematoma in the bladder. 2. Moderate right hydronephrosis and hydroureter and severe left hydronephrosis and hydroureter. 3. Severely enlarged prostate. 4. Pelvic lymphadenopathy suspicious for metastatic disease. Labs Labs: Laboratory Results - last 24 hr 08/21/24 08/21/24 08/21/24 11:21 11:22 14:47 WBC 9.8 RBC 4.07 L Hgb 12.5 L Hct 36.3 L MCV 89.2 MCH 30.7 MCHC 34.4 RDW 12.5 Plt Count 248 MPV 9.9 Immature Gran % (Auto) 0.3 Neut % (Auto) 78.5 H Lymph % (Auto) 10.6 L [place] % (Auto) 9.7 H Eos % (Auto) 0.7 Baso % (Auto) 0.2 Lymph # (Auto) 1.04 [place] # (Auto) 1.0 H Eos # (Auto) 0.1 Baso # (Auto) 0.0 Abs Immat Gran (auto) 0.03 Absolute Neuts (auto) 7.7 H Absolute Nucleated RBC 0.000 Nucleated RBC % 0.0 Sodium 138 Potassium 3.6 Chloride 97 L Carbon Dioxide 28 Anion Gap 13 H BUN 43 H D Creatinine 5.20 H Estim Creat Clear Calc 16 Estimated GFR 12 L Glucose 89 Calcium 9.3 Total Bilirubin 0.6 AST 34 ALT 26 Alkaline Phosphatase 70 Total Creatine Kinase 57 Total Protein 7.0 Albumin 4.2 Lipase 61 Urine Color Other Urine Appearance Turbid H Urine pH 6.0 Ur Specific [place] 1.009 Urine Protein 3+ H Urine Glucose (UA) Negative Urine Ketones Trace H Ur Blood (Man) 3+ H Urine Nitrate Negative Urine Bilirubin Negative Urine Urobilinogen 0.2 Add Ur Microanalysis Reviewed Leukocyte Esterase Rfl 2+ H Urine RBC >100 H Urine WBC >100 H Ur Squamous Epith Cells Occasional Urine Bacteria 3+ H Urine Casts 0-2 08/22/24 06:06 WBC 9.5 RBC 3.37 L Hgb 10.5 L Hct 30.2 L MCV 89.6 MCH 31.2 MCHC 34.8 RDW 12.6 Plt Count 214 MPV 10.2 Immature Gran % (Auto) 0.4 Neut % (Auto) 79.1 H Lymph % (Auto) 9.1 L [place] % (Auto) 10.6 H Eos % (Auto) 0.7 Baso % (Auto) 0.1 L Lymph # (Auto) 0.87 L [place] # (Auto) 1.0 H Eos # (Auto) 0.1 Baso # (Auto) 0.0 Abs Immat Gran (auto) 0.04 H Absolute Neuts (auto) 7.5 H Absolute Nucleated RBC 0.000 Nucleated RBC % 0.0 Sodium Potassium Chloride Carbon Dioxide Anion Gap BUN Creatinine Estim Creat Clear Calc Estimated GFR Glucose Calcium Total Bilirubin AST ALT Alkaline Phosphatase Total Creatine Kinase Total Protein Albumin Lipase Urine Color Urine Appearance Urine pH Ur Specific [place] Urine Protein Urine Glucose (UA) Urine Ketones Ur Blood (Man) Urine Nitrate Urine Bilirubin Urine Urobilinogen Add Ur Microanalysis Leukocyte Esterase Rfl Urine RBC Urine WBC Ur Squamous Epith Cells Urine Bacteria Urine Casts
[2024-08-22 06:58] LABS: Alanine Aminotransferase 25 U/L (6-50); Albumin Level 3.4 g/dL (3.5-5.1); Alkaline Phosphatase 60 U/L (38-126); Anion Gap 10 mmol/L (4-12); Aspartate Amino Transferase 30 U/L (17-59); Bilirubin,Total 0.6 mg/dL (0.2-1.3); Blood Urea Nitrogen 41 mg/dL (9-20); CRP 4.2 mg/dL (<1.0); Calcium 8.4 mg/dL (8.4-10.2); Carbon Dioxide 23 mmol/L (22-30); Chloride 105 mmol/L (98-107); Estimated CRCL calculation 15 ml/min; Estimated Glomerular Filt Rate 11; Glucose 96 mg/dL (65-110); Sodium 138 mmol/L (137-145)
--- NOTE | 2024-08-22 07:28 | PM.IMPN ---
Progress Note: A&P Assessment and Plan (1) Acute renal failure: Code(s): N17.9 - Acute kidney failure, unspecified Status: Acute Assessment and Plan: Concerns for pre-renal etiology from no oral intake for the last two days as well as possible AIN from antibiotic versus NSAID. Patient has proteinuria and casts presents on UA. No eosinophils presents on CBC, urine eosinophil pending. There is also an obstructive uropathy from the large clot burden in the bladder. - bladder scan in ED showed retained 500 mL post-void. Ogden placed and Flomax initiated, will need outpatient urology follow-up. - CT abd/pelvis w/o con 1. Acute hematoma in the bladder. 2. Moderate right hydronephrosis and hydroureter and severe left hydronephrosis and hydroureter. 3. Severely enlarged prostate. 4. Pelvic lymphadenopathy suspicious for metastatic disease. - CK was 57 - urine sodium, protein/creatinine and other studies pending - UA showed 3+ protein and 3+ blood - NS at 125 ml per hour. Cr did not improve despite fluids. - monitor I&Os - stop felipe inhibitors and diuretics as appropriate (on lisinopril-HCTZ). No NSAIDs. Avoid other nephrotoxins. Renally dose medications. - renal ultrasound showed moderate bilateral hydronephrosis, small hematoma in the bladder, and severely enlarged prostate. - nephrology consultation, awaiting recs, appreciated - Urology consult ordered, recs appreciated (2) UTI (urinary tract infection): Qualifiers: Hematuria presence: with hematuria Urinary tract infection type: acute cystitis Qualified Code(s): N30.01 - Acute cystitis with hematuria Code(s): N39.0 - Urinary tract infection, site not specified Status: Suspected Assessment and Plan: - did not meet SIRS criteria - recent outpatient abx Cipro BID x5 days on 08/12 - no leukocytosis, CRP 4.2 - UA: Turbid, 3+ protein, trace ketones, 3+ blood, 2+ leuks, greater than 100 RBC and WBC, occasional epithelial cells, 3+ bacteria - UC pending - previous micro reviewed, culture from 08/12/2024 showed no growth. - started on Ceftriaxone on 08/21 (3) Urinary retention: Code(s): R33.9 - Retention of urine, unspecified Status: Acute Assessment and Plan: - Ogden placed - monitor I&Os - Flomax initiated - urology consulted - suspect lower obstruction secondary to BPH. He also reports not having a bowel movement since Monday. Constipation may be contributing. Bowel regimen ordered. (4) Hematoma of bladder wall: Qualifiers: Encounter type: initial encounter Qualified Code(s): S37.22XA - Contusion of bladder, initial encounter Code(s): S37.22XA - Contusion of bladder, initial encounter Status: Acute Assessment and Plan: - CT abd/pelvis: acute hematoma in the bladder with lymphadenopathy - urology consulted for retention and new bladder hematoma seen on CT. - Continue CBI. Ogden with tiara colored urine - Urology will go for cysto tomorrow with possible stent placement and prostate biopsy (5) HTN (hypertension): Qualifiers: Hypertension type: primary hypertension Qualified Code(s): I10 - Essential (primary) hypertension Code(s): I10 - Essential (primary) hypertension Status: Chronic Assessment and Plan: - chronic, currently 158/108 - home medications: hold lisinopril-HCTZ given current renal failure, add hydralazine prn for BP greater than 180/90. - start amlodipine 5 mg daily Plan Diet: Renal GI Prophylaxis: Not currently indicated DVT Prophylaxis: SCDs Lines: Peripheral Code Status: Full code Subjective Date/time seen: 08/22/24 07:28 Interval history: Spoke with patient and family at the bedside. He is up in the chair in no acute distress. He feels better now that he has had some ice cream. He reports that a couple of weeks ago he noticed that he was having blood in his urine. He told his PCP who ordered a UA and started him on ciprofloxacin for a possible UTI. She was concerned maybe he had kidney stones that were causing the hematuria per the patient. Within an hour after taking the cipro he developed severe flank pain. Despite this he continued to take the antibiotic for a total of seven doses. He treated the pain with ibuprofen, taking 3 200 mg tablets twice a day with the antibiotic. He reports some nausea this morning but it resolved after drinking some water and eating. He thinks the nausea was from taking his medication on an empty stomach. Review of Systems Review of Systems: All systems reviewed & are unremarkable except as noted in HPI and below Exam Narrative: General: appears comfortable, in no acute distress Respiratory: breathing is unlabored with even chest rise/fall, lungs are clear without wheezing, rhonchi, and crackles Cardiovascular: Rate and rhythm regular, normal s1s2, no murmur Abdomen: Soft, round, non-tender, active bowel sounds Extremities: No cyanosis, edema, clubbing. Pulses 2/2 Neuro: A&O x 4 Skin: Warm, dry, intact, slight jaundice Objective Data Vital Signs Vital Signs: Vital Signs - 24 hr 08/21/24 10:39 08/21/24 13:21 08/21/24 15:43 Temperature 97.8 F Pulse Rate 88 85 Respiratory Rate 16 18 Blood Pressure 171/100 H 158/108 H Pulse Oximetry 99 96 Oxygen Delivery Room Air 08/21/24 14:00 08/21/24 21:06 08/21/24 20:00 Temperature 98.1 F 98.9 F Pulse Rate 68 83 Respiratory Rate 18 16 Blood Pressure 120/45 L 158/98 H Pulse Oximetry 98 96 Oxygen Delivery Room Air 08/22/24 05:00 Temperature 98.6 F Pulse Rate 74 Respiratory Rate 16 Blood Pressure 150/88 H Pulse Oximetry 96 Oxygen Delivery Intake/Output Intake/Output: Intake & Output 08/19/24 08/20/24 08/21/24 08/22/24 23:59 23:59 23:59 23:59 Intake Total 2147.9 922.9 Output Total 100 202 Balance 2047.9 -1102.1 Meds/Results Medications: Active Medications Generic Name Dose Route Start Last Admin Trade Name Freq PRN Reason Stop Dose Admin Acetaminophen 650 mg 08/21/24 14:21 Acetaminophen 325 Mg Tablet PO Q6H PRN Mild Pain (1-3) or Fever Hydrocodone Bitart/Acetaminophen 1 tab 08/21/24 18:11 Hydrocodone/Acetaminophen (*Crx) 5-325 Mg Tablet PO Q4H PRN Pain Rated 4-6 Atorvastatin Calcium 10 mg 08/21/24 21:00 08/21/24 21:03 Atorvastatin 10 Mg Tablet PO 10 mg QHS CHEN Administration Hydralazine HCl 10 mg 08/21/24 14:23 Hydralazine Hcl 20 Mg/Ml Vial IV PUSH Q8H PRN BP greater than 180/90 Ceftriaxone Sodium 1 gm in 50 mls @ 100 mls/hr 08/22/24 09:00 Rocephin 1 Gm/Ns 50 Ml IVPB Q24H [facility] Sodium Chloride 1,000 mls @ 125 mls/hr 08/21/24 12:50 08/22/24 06:49 Normal Saline Iv IV CONT 125 mls/hr .Q8H CHEN Administration Loratadine 10 mg 08/22/24 09:00 Loratadine 10 Mg Tablet PO QAM CHEN Morphine Sulfate 2 mg 08/21/24 18:11 08/21/24 18:23 Morphine Sulfate (*Crx) 2 Mg/Ml Inj IV PUSH 2 mg Q4H PRN Administration Pain Rated 7-10 Polyethylene Glycol 17 gm 08/21/24 18:51 Polyethylene Glycol 3350 17 Gm Powd.Pack PO QAM PRN Constipation Senna/Docusate Sodium 1 tab 08/21/24 21:00 08/21/24 21:03 Senna/Docusate Sodium Tablet PO 1 tab HS CHEN Administration Tamsulosin HCl 0.4 mg 08/22/24 09:00 Tamsulosin Hcl 0.4 [facility] Radiology Results: ITS Impressions Abdomen/Pelvis CT 08/21/24 14:12 IMPRESSION: 1. Acute hematoma in the bladder. 2. Moderate right hydronephrosis and hydroureter and severe left hydronephrosis and hydroureter. 3. Severely enlarged prostate. 4. Pelvic lymphadenopathy suspicious for metastatic disease. Labs Labs: Laboratory Results - last 24 hr 08/21/24 08/21/24 08/21/24 11:21 11:22 14:47 WBC 9.8 RBC 4.07 L Hgb 12.5 L Hct 36.3 L MCV 89.2 MCH 30.7 MCHC 34.4 RDW 12.5 Plt Count 248 MPV 9.9 Immature Gran % (Auto) 0.3 Neut % (Auto) 78.5 H Lymph % (Auto) 10.6 L [place] % (Auto) 9.7 H Eos % (Auto) 0.7 Baso % (Auto) 0.2 Lymph # (Auto) 1.04 [place] # (Auto) 1.0 H Eos # (Auto) 0.1 Baso # (Auto) 0.0 Abs Immat Gran (auto) 0.03 Absolute Neuts (auto) 7.7 H Absolute Nucleated RBC 0.000 Nucleated RBC % 0.0 Sodium 138 Potassium 3.6 Chloride 97 L Carbon Dioxide 28 Anion Gap 13 H BUN 43 H D Creatinine 5.20 H Estim Creat Clear Calc 16 Estimated GFR 12 L Glucose 89 Calcium 9.3 Total Bilirubin 0.6 AST 34 ALT 26 Alkaline Phosphatase 70 Total Creatine Kinase 57 C-Reactive Protein Total Protein 7.0 Albumin 4.2 Lipase 61 Urine Color Other Urine Appearance Turbid H Urine pH 6.0 Ur Specific [place] 1.009 Urine Protein 3+ H Urine Glucose (UA) Negative Urine Ketones Trace H Ur Blood (Man) 3+ H Urine Nitrate Negative Urine Bilirubin Negative Urine Urobilinogen 0.2 Add Ur Microanalysis Reviewed Leukocyte Esterase Rfl 2+ H Urine RBC >100 H Urine WBC >100 H Ur Squamous Epith Cells Occasional Urine Bacteria 3+ H Urine Casts 0-2 08/22/24 06:06 WBC 9.5 RBC 3.37 L Hgb 10.5 L Hct 30.2 L MCV 89.6 MCH 31.2 MCHC 34.8 RDW 12.6 Plt Count 214 MPV 10.2 Immature Gran % (Auto) 0.4 Neut % (Auto) 79.1 H Lymph % (Auto) 9.1 L [place] % (Auto) 10.6 H Eos % (Auto) 0.7 Baso % (Auto) 0.1 L Lymph # (Auto) 0.87 L [place] # (Auto) 1.0 H Eos # (Auto) 0.1 Baso # (Auto) 0.0 Abs Immat Gran (auto) 0.04 H Absolute Neuts (auto) 7.5 H Absolute Nucleated RBC 0.000 Nucleated RBC % 0.0 Sodium 138 Potassium 3.0 L Chloride 105 Carbon Dioxide 23 Anion Gap 10 BUN 41 H Creatinine 5.40 H Estim Creat Clear Calc 15 Estimated GFR 11 L Glucose 96 Calcium 8.4 Total Bilirubin 0.6 AST 30 ALT 25 Alkaline Phosphatase 60 Total Creatine Kinase C-Reactive Protein 4.2 H Total Protein 6.0 L Albumin 3.4 L Lipase Urine Color Urine Appearance Urine pH Ur Specific [place] Urine Protein Urine Glucose (UA) Urine Ketones Ur Blood (Man) Urine Nitrate Urine Bilirubin Urine Urobilinogen Add Ur Microanalysis Leukocyte Esterase Rfl Urine RBC Urine WBC Ur Squamous Epith Cells Urine Bacteria Urine Casts Quality VTE Prophylaxis VTE prophylaxis: mechanical ordered
[2024-08-22] MEDS: LORATADINE 10 MG TABLET PO (08:10)
[2024-08-22] MEDS: POTASSIUM CHLORIDE 20 MEQ ER TABLET 40 MEQ PO (08:10)
[2024-08-22] MEDS: TAMSULOSIN HCL 0.4 MG CAPSULE PO (08:10)
[2024-08-22 13:42] LABS: Creatine Kinase 55 U/L (55-170); Phosphorus 4.1 mg/dL (2.5-4.5)
[2024-08-22 13:48] LABS: Complement C3 129 mg/dL (88-165)
[2024-08-22 13:55] LABS: Iron 49 ug/dL (49-181)
[2024-08-22 14:00] VITALS: BP 146/91; PULSE 77; RESP 15; TEMP 37.2; O2SAT 98
[2024-08-22 14:05] LABS: Percent Iron Saturation 19 % (20-50)
[2024-08-22 20:32] VITALS: BP 141/83; PULSE 77; RESP 14; TEMP 37.1; O2SAT 97
[2024-08-22] MEDS: ATORVASTATIN 10 MG TABLET PO (20:44)
[2024-08-23] VITALS (11 sets, daily range): BP systolic 131–188; BP diastolic 75–99; PULSE 71–89; RESP 14–20; TEMP 36.4–37.1; O2SAT 97–100
[2024-08-23] MEDS: SODIUM CHLORIDE 0.9% IV 1,000 ML 125 ML IV CONT ×3 (00:34→22:23)
[2024-08-23 06:33] LABS: Basophils Percent Auto 0.3 % (0.2-1.2); Eosinophils Absolute Auto 0.1 K/mm3 (0-0.3); Hemoglobin 11.1 g/dL (14.0-18.0); Immature Granulocyte Absolute 0.06 K/mm3 (0.00-0.031); Immature Granulocyte Percent A 0.6 % (0-0.5); Lymphocytes Absolute Auto 1.13 K/mm3 (0.9-3.2); Lymphocytes Percent Auto 11.6 % (18.3-44.2); Mean Corpuscular HGB Conc 33.6 g/dl (32-36); Mean Corpuscular Hemoglobin 30.5 pg (26-34); Mean Corpuscular Volume 90.7 fl (80-100); Mean Platelet Volume 9.8 fl (7.4-10.4); Monocytes Percent Auto 9.9 % (2.6-8.5); Neutrophils Absolute Auto 7.5 K/mm3 (1.3-6.7); Neutrophils Percent Auto 76.6 % (45.5-73.1); Platelet Count Result 240 k/mm3 (150-375); Red Blood Count 3.64 M/mm3 (4.6-6.20); Red Cell Distribution Width 12.5 % (11.5-14.5); White Blood Count 9.8 K/mm3 (4.5-10.0)
[2024-08-23 06:43] LABS: Alanine Aminotransferase 29 U/L (6-50); Albumin Level 3.6 g/dL (3.5-5.1); Alkaline Phosphatase 71 U/L (38-126); Anion Gap 8 mmol/L (4-12); Aspartate Amino Transferase 31 U/L (17-59); Bilirubin,Total 0.5 mg/dL (0.2-1.3); Blood Urea Nitrogen 40 mg/dL (9-20); Calcium 8.4 mg/dL (8.4-10.2); Carbon Dioxide 22 mmol/L (22-30); Chloride 109 mmol/L (98-107); Estimated CRCL calculation 16 ml/min; Estimated Glomerular Filt Rate 12; Glucose 107 mg/dL (65-110); Magnesium 2.2 mg/dL (1.6-2.3); Phosphorus 4.1 mg/dL (2.5-4.5); Potassium 3.6 mmol/L (3.4-5.0); Sodium 139 mmol/L (137-145)
--- NOTE | 2024-08-23 06:51 | P.PNUR_ITS ---
Progress Note: A&P Assessment and Plan (1) Hematoma of bladder wall: Qualifiers: Encounter type: initial encounter Qualified Code(s): S37.22XA - Contusion of bladder, initial encounter Code(s): S37.22XA - Contusion of bladder, initial encounter Status: Acute (2) Acute renal failure: Code(s): N17.9 - Acute kidney failure, unspecified Status: Acute (3) Pelvic lymphadenopathy: Code(s): R59.0 - Localized enlarged lymph nodes Status: Acute Assessment and Plan: * Urine remains clear on CBI * Given grossly abnormal appearance of the prostate and pelvic lymph a nap with the will plan transrectal ultrasound with ultrasound-guided biopsy of the prostate today * Depending on this morning's labs will also consider placement bilateral ureteral stent Subjective Subjective Date/Time Seen: 08/23/24 06:51 Interval history: Tearful this morning. No pain/discomfort. Review of Systems Review of Systems: All systems reviewed & are unremarkable except as noted in HPI and below Exam Const: General: no acute distress Resp: Effort & Inspection: normal respiratory effort GI: Inspection: non-distended GI Palp: No abdominal tenderness and No Guarding due to palpation present (GI) Auscultation: normal bowel sounds Urinary Catheter: Urinary Catheter: patent and draining and urine clear Objective Data Vital Signs Vital Signs: Vital Signs - 24 hr 08/22/24 08:00 08/22/24 14:00 08/22/24 20:32 Temperature 99 F 98.7 F Pulse Rate 77 77 Respiratory Rate 15 14 Blood Pressure 146/91 H 141/83 H Pulse Oximetry 98 97 Oxygen Delivery Room Air 08/22/24 20:00 08/23/24 05:20 Temperature 98.4 F Pulse Rate 71 Respiratory Rate 18 Blood Pressure 151/91 H Pulse Oximetry 99 Oxygen Delivery Room Air Intake/Output Intake/Output: Intake & Output 08/20/24 08/21/24 08/22/24 08/23/24 23:59 23:59 23:59 23:59 Intake Total 2147.9 65624.9 983.3 Output Total 100 3775 2400 Balance 2047.9 7867.9 -1416.7 Meds/Results Medications: Active Medications Generic Name Dose Route Start Last Admin Trade Name Freq PRN Reason Stop Dose Admin Acetaminophen 650 mg 11/13/24 14:21 Acetaminophen 325 Mg Tablet PO Q6H PRN Mild Pain (1-3) or Fever Hydrocodone Bitart/Acetaminophen 1 tab 08/21/24 18:11 Hydrocodone/Acetaminophen (*Crx) 5-325 Mg Tablet PO Q4H PRN Pain Rated 4-6 Amlodipine Besylate 5 mg 08/23/24 09:00 Amlodipine Besylate 5 Mg Tablet PO DAILY CHEN Atorvastatin Calcium 10 mg 08/21/24 21:00 08/22/24 20:44 Atorvastatin 10 Mg Tablet PO 10 mg QHS CHEN Administration Hydralazine HCl 10 mg 08/21/24 14:23 Hydralazine Hcl 20 Mg/Ml Vial IV PUSH Q8H PRN BP greater than 180/90 Ceftriaxone Sodium 1 gm in 50 mls @ 100 mls/hr 08/22/24 09:00 08/22/24 08:11 Rocephin 1 Gm/Ns 50 Ml IVPB 100 mls/hr Q24H CHEN Administration Sodium Chloride 1,000 mls @ 125 mls/hr 08/21/24 12:50 08/23/24 00:34 Normal Saline Iv IV CONT 125 mls/hr .Q8H CHEN Administration Loratadine 10 mg 08/22/24 09:00 08/22/24 08:10 Loratadine 10 Mg Tablet PO 10 mg QAM CHEN Administration Morphine Sulfate 2 mg 08/21/24 18:11 08/21/24 18:23 Morphine Sulfate (*Crx) 2 Mg/Ml Inj IV PUSH 2 mg Q4H PRN Administration Pain Rated 7-10 Polyethylene Glycol 17 gm 08/21/24 18:51 Polyethylene Glycol 3350 17 Gm Powd.Pack PO QAM PRN Constipation Polyethylene Glycol 17 gm 08/22/24 12:55 08/22/24 13:26 Polyethylene Glycol 3350 17 Gm Powd.Pack PO Not Given QAM CHEN Senna/Docusate Sodium 1 tab 08/22/24 21:00 08/22/24 20:45 Senna/Docusate Sodium Tablet PO Not Given HS CHEN Tamsulosin HCl 0.4 mg 08/22/24 09:00 08/22/24 08:10 Tamsulosin Hcl 0.4 Mg Capsule PO 0.4 mg QAM CHEN Administration Radiology Results: ITS Impressions Abdomen/Pelvis CT 08/21/24 14:12 IMPRESSION: 1. Acute hematoma in the bladder. 2. Moderate right hydronephrosis and hydroureter and severe left hydronephrosis and hydroureter. 3. Severely enlarged prostate. 4. Pelvic lymphadenopathy suspicious for metastatic disease. Retroperitoneum Ultrasound 08/22/24 10:04 IMPRESSION: 1. Moderate bilateral hydronephrosis. 2. Small volume of hematoma in the bladder. 3. Severely enlarged prostate. Labs Labs: Laboratory Results - last 24 hr 08/22/24 08/22/24 08/23/24 06:06 13:21 06:25 WBC 9.8 RBC 3.64 L Hgb 11.1 L Hct 33.0 L MCV 90.7 MCH 30.5 MCHC 33.6 RDW 12.5 Plt Count 240 MPV 9.8 Immature Gran % (Auto) 0.6 H Neut % (Auto) 76.6 H Lymph % (Auto) 11.6 L [place] % (Auto) 9.9 H Eos % (Auto) 1.0 Baso % (Auto) 0.3 Lymph # (Auto) 1.13 [place] # (Auto) 1.0 H Eos # (Auto) 0.1 Baso # (Auto) 0.0 Abs Immat Gran (auto) 0.06 H Absolute Neuts (auto) 7.5 H Absolute Nucleated RBC 0.000 Nucleated RBC % 0.0 Sodium 138 139 Potassium 3.0 L 3.6 Chloride 105 109 H Carbon Dioxide 23 22 Anion Gap 10 8 BUN 41 H 40 H Creatinine 5.40 H 5.00 H Estim Creat Clear Calc 15 16 Estimated GFR 11 L 12 L Glucose 96 107 Calcium 8.4 8.4 Phosphorus 4.1 4.1 Magnesium 2.2 Iron 49 TIBC 263 L % Saturation 19 L Total Bilirubin 0.6 0.5 AST 30 31 ALT 25 29 Alkaline Phosphatase 60 71 Total Creatine Kinase 55 C-Reactive Protein 4.2 H Total Protein 6.0 L 7.0 Albumin 3.4 L 3.6 Complement C3 129 Complement C4 41.6
[2024-08-23 06:57] LABS: Prothrombin Time 13.8 Seconds (11.1-14.7)
[2024-08-23 06:58] LABS: Partial Thromboplastin Time 29.6 Seconds (22.3-36.8)
[2024-08-23] MEDS: TAMSULOSIN HCL 0.4 MG CAPSULE PO (08:11)
[2024-08-23] MEDS: amLODIPine BESYLATE 5 MG TABLET PO (08:12)
[2024-08-23] MEDS: LORATADINE 10 MG TABLET PO (08:12)
[2024-08-23] MEDS: HYDROcodone/acetaminophen (*CRX) 5-325 MG TABLET 1 TAB PO (09:09)
[2024-08-23 10:36] LABS: IFOB Positive Control Positive; Immunochemical Fecal Occult Bl Negative (N)
[2024-08-23] MEDS: NACL 0.9% IRRIGATION POUR BOTTLE 500 ML (11:29)
--- NOTE | 2024-08-23 12:59 | P.PNAN_ITS ---
Anes - Initial Pre Proc Eval Procedure: Operation Date: 08/23/24 14:00 Proposed Procedures p Cystoscopy, Evacuation Bladder Clots, with Bilateral Stent Placement - Ruben Vargas MD s Trans Rectal Prostate Biopsy - Ruben Vargas MD Date/Time: 08/23/24 12:59 Surgeon: Laure Joseph APRN Pre Op Diagnosis: Acute kidney injury, obstructive uropathy, UTI Patient Data Age: 54 Gender: M Height: 1.78 m Weight: 86.5 kg Last Vital Signs Temp 36.6 C 08/23/24 11:08 Pulse 73 08/23/24 11:08 Resp 20 08/23/24 11:08 BP 188/96 H 08/23/24 11:08 Pulse Ox 98 08/23/24 11:08 O2 Del Method Room Air 08/23/24 08:44 FiO2 21 08/23/24 08:44 Allergies Allergy/AdvReac Type Severity Reaction Status Date / Time banana Allergy Mild Itching Verified 08/21/24 14:21 No Known Drug Allergies Allergy Unknown Verified 08/21/24 14:21 Home Medications Medication Instructions Recorded Confirmed Type lisinopril 20 1 tablet PO DAILY #90 tabs 05/30/24 08/21/24 Rx mg-hydrochlorothiazide 12.5 mg tablet atorvastatin 10 mg tablet 10 mg PO QHS #90 tabs 08/12/24 08/21/24 Rx cetirizine 10 mg tablet (Zyrtec) 10 mg PO DAILY 08/21/24 08/21/24 History Laboratory Tests 08/22/24 08/22/24 08/23/24 13:21 13:22 06:25 WBC 9.8 K/mm3 (4.5-10.0) RBC 3.64 L M/mm3 (4.6-6.20) Hgb 11.1 L g/dL (14.0-18.0) Hct 33.0 L % (42.0-52.0) MCV 90.7 fl (80-100) MCH 30.5 pg (26-34) MCHC 33.6 g/dl (32-36) RDW 12.5 % (11.5-14.5) Plt Count 240 k/mm3 (150-375) MPV 9.8 fl (7.4-10.4) Immature Gran % (Auto) 0.6 H % (0-0.5) Neut % (Auto) 76.6 H % (45.5-73.1) Lymph % (Auto) 11.6 L % (18.3-44.2) Wirt % (Auto) 9.9 H % (2.6-8.5) Eos % (Auto) 1.0 % (0-4.4) Baso % (Auto) 0.3 % (0.2-1.2) Lymph # (Auto) 1.13 K/mm3 (0.9-3.2) Wirt # (Auto) 1.0 H K/mm3 (0.1-0.6) Eos # (Auto) 0.1 K/mm3 (0-0.3) Baso # (Auto) 0.0 K/mm3 (0.0-0.1) Abs Immat Gran (auto) 0.06 H K/mm3 (0.00-0.031) Absolute Neuts (auto) 7.5 H K/mm3 (1.3-6.7) Absolute Nucleated RBC 0.000 K/mm3 (0.0-0.012) Nucleated RBC % 0.0 % (0.0-0.2) PT 13.8 Seconds (11.1-14.7) INR 1.0 APTT 29.6 Seconds (22.3-36.8) Sodium 139 mmol/L (137-145) Potassium 3.6 mmol/L (3.4-5.0) Chloride 109 H mmol/L (98-107) Carbon Dioxide 22 mmol/L (22-30) Anion Gap 8 mmol/L (4-12) BUN 40 H mg/dL (9-20) Creatinine 5.00 H mg/dL (0.7-1.3) Estim Creat Clear Calc 16 ml/min Estimated GFR 12 L (59 - ) Glucose 107 mg/dL (65-110) Serum Osmolality Pending Calcium 8.4 mg/dL (8.4-10.2) Phosphorus 4.1 mg/dL 4.1 mg/dL (2.5-4.5) (2.5-4.5) Magnesium 2.2 mg/dL (1.6-2.3) Iron 49 ug/dL (49-181) TIBC 263 L ug/dL (265-497) % Saturation 19 L % (20-50) Total Bilirubin 0.5 mg/dL (0.2-1.3) AST 31 U/L (17-59) ALT 29 U/L (6-50) Alkaline Phosphatase 71 U/L (38-126) Total Creatine Kinase 55 U/L (55-170) Total Protein 7.0 g/dL (6.3-8.2) Albumin 3.6 g/dL (3.5-5.1) Stl Occult Blood (IFOB) ELFEGO Screen Pending ANCA Screen Pending Glomerular Base Memb Ab Pending Complement C3 129 mg/dL (88-165) Complement C4 41.6 mg/dL (14.0-44.0) Tot Complement (CH50) Pending Anti-Streptolysin Scrn Pending 08/23/24 09:49 WBC RBC Hgb Hct MCV MCH MCHC RDW Plt Count MPV Immature Gran % (Auto) Neut % (Auto) Lymph % (Auto) Wirt % (Auto) Eos % (Auto) Baso % (Auto) Lymph # (Auto) Wirt # (Auto) Eos # (Auto) Baso # (Auto) Abs Immat Gran (auto) Absolute Neuts (auto) Absolute Nucleated RBC Nucleated RBC % PT INR APTT Sodium Potassium Chloride Carbon Dioxide Anion Gap BUN Creatinine Estim Creat Clear Calc Estimated GFR Glucose Serum Osmolality Calcium Phosphorus Magnesium Iron TIBC % Saturation Total Bilirubin AST ALT Alkaline Phosphatase Total Creatine Kinase Total Protein Albumin Stl Occult Blood (IFOB) Negative (N) ELFEGO Screen ANCA Screen Glomerular Base Memb Ab Complement C3 Complement C4 Tot Complement (CH50) Anti-Streptolysin Scrn Patient hx anesthesia problems: none Family hx anesthesia problems: none Results Review: All pre-operative results and documents have been reviewed as part of the pre- operative evaluation. [facility] Past Medical History Medical History HTN (hypertension) Hyperlipidemia Kidney stones Surgical History Surgical History No significant past surgical history Family History Family History Mother CHF (congestive heart failure) Social History Social History Years smoked: 17 Smoking status: Current every day smoker Alcohol intake: current Alcohol use details: occasionally Substance use: current Substance use type: marijuana Do You Feel Safe in your Home?: Yes Lack of Transportation: No Lack of Food: Never True Current Housing: I Have Housing Concerned About Future Housing: No Difficulty Paying Gas/Electric Bills: No Difficulty Paying for Meds: No Currently Unemployed: No Education: High School Diploma/GED Difficulty w/ Childcare or Family Care: No Spiritual care concerns: No Anes - Eval Final PreProcedure Day of Procedure 08/23/24 12:59 Patient weight: overweight Heart: regular rate and rhythm Lungs: clear to auscultation Airway: Mallampati scale class II Neurological: alert and oriented Last oral intake: >/= 8 hours ASA classification: III Emergent: no Anesthetic plan: proceed Anesthesia type and monitoring: general LMA and standard monitoring Results Review: All pre-operative results and documents have been reviewed as part of the pre- operative evaluation. Informed Consent: The patient's anesthetic plan and its attendant risks and benefits were discussed with the patient/family/POA. Questions were solicited and answers provided to the satisfaction of the patient/family/POA.
[2024-08-23] MEDS: LACTATED RINGERS 1,000 ML 30 ML IV CONT ×2 (13:00→14:35)
--- NOTE | 2024-08-23 13:27 | WPDHPUPDATE1 ---
History and Physical Update Update Date/Time: 08/23/24 13:27 Plan today: Cystoscopy, bilateral ureteral stent placement and prostate ultrasound/biopsy History and Physical has been reviewed, including an updated exam of the patient. There are NO changes in the patient's condition. Risks, benefits, and alternatives have been discussed and questions answered. Patient agrees to proceed with procedure.
[2024-08-23 13:34] LABS: Complement Total CH50 >60 U/mL (31-60)
[2024-08-23] MEDS: LIDOCAINE HCL 2% GEL UROJET 10 ML PKG MUCOUS MEM (13:49)
--- NOTE | 2024-08-23 14:49 | P.PNIM_ITS ---
Progress Note: A&P Assessment and Plan (1) Acute renal failure: Code(s): N17.9 - Acute kidney failure, unspecified Status: Acute Assessment and Plan: Concerns for pre-renal etiology from no oral intake for the last two days as well as possible AIN from antibiotic versus NSAID. Patient has proteinuria and casts presents on UA. No eosinophils presents on CBC, urine eosinophil pending. There is also an obstructive uropathy from the large clot burden in the bladder. - bladder scan in ED showed retained 500 mL post-void. Ogden placed and Flomax initiated, will need outpatient urology follow-up. - CT abd/pelvis w/o con 1. Acute hematoma in the bladder. 2. Moderate right hydronephrosis and hydroureter and severe left hydronephrosis and hydroureter. 3. Severely enlarged prostate. 4. Pelvic lymphadenopathy suspicious for metastatic disease. - CK was 57 - urine sodium, protein/creatinine and other studies pending - UA showed 3+ protein and 3+ blood - NS at 125 ml per hour. Cr did not improve despite fluids. - monitor I&Os - stop felipe inhibitors and diuretics as appropriate (on lisinopril-HCTZ). No NSAIDs. Avoid other nephrotoxins. Renally dose medications. - renal ultrasound showed moderate bilateral hydronephrosis, small hematoma in the bladder, and severely enlarged prostate. - nephrology consultation, awaiting recs, appreciated - Urology consult ordered, recs appreciated (2) UTI (urinary tract infection): Qualifiers: Urinary tract infection type: acute cystitis Hematuria presence: with hematuria Qualified Code(s): N30.01 - Acute cystitis with hematuria Code(s): N39.0 - Urinary tract infection, site not specified Status: Suspected Assessment and Plan: - did not meet SIRS criteria - recent outpatient abx Cipro BID x5 days on 08/12 - no leukocytosis, CRP 4.2 - UA: Turbid, 3+ protein, trace ketones, 3+ blood, 2+ leuks, greater than 100 RBC and WBC, occasional epithelial cells, 3+ bacteria - UC negative - previous micro reviewed, culture from 08/12/2024 showed no growth. - started on Ceftriaxone on 08/21 (3) Urinary retention: Code(s): R33.9 - Retention of urine, unspecified Status: Acute Assessment and Plan: - Ogden placed - monitor I&Os - Flomax initiated - urology consulted - suspect lower obstruction secondary to BPH. He also reports not having a bowel movement since Monday. Constipation may be contributing. Bowel regimen ordered. (4) Hematoma of bladder wall: Qualifiers: Encounter type: initial encounter Qualified Code(s): S37.22XA - Contusion of bladder, initial encounter Code(s): S37.22XA - Contusion of bladder, initial encounter Status: Acute Assessment and Plan: - CT abd/pelvis: acute hematoma in the bladder with lymphadenopathy - urology consulted for retention and new bladder hematoma seen on CT. - Continue CBI. Ogden with tiara colored urine - Urology will go for cysto today with possible stent placement and prostate biopsy (5) HTN (hypertension): Qualifiers: Hypertension type: primary hypertension Qualified Code(s): I10 - Essential (primary) hypertension Code(s): I10 - Essential (primary) hypertension Status: Chronic Assessment and Plan: - chronic, currently 158/108 - home medications: hold lisinopril-HCTZ given current renal failure, add hydralazine prn for BP greater than 180/90. - started amlodipine 5 mg daily on 08/22. Increased to 10 mg daily today given persistent HTN. Plan Diet: Renal GI Prophylaxis: Not currently indicated DVT Prophylaxis: SCDs Lines: Peripheral Code Status: Full code Subjective Date/time seen: 08/23/24 14:49 Interval history: No acute events overnight. He is waiting to go for a cystoscopy today for ureteral stent placement and prostate biopsy. He is feeling okay overall, just hungry. Review of Systems Review of Systems: All systems reviewed & are unremarkable except as noted in HPI and below Exam Narrative: General: appears comfortable, in no acute distress Respiratory: breathing is unlabored with even chest rise/fall, lungs are clear without wheezing, rhonchi, and crackles Cardiovascular: Rate and rhythm regular, normal s1s2, no murmur Abdomen: Soft, round, non-tender, active bowel sounds Extremities: No cyanosis, edema, clubbing. Pulses 2/2 Neuro: A&O x 4 Skin: Warm, dry, intact, slight jaundice Objective Data Vital Signs Vital Signs: Vital Signs - 24 hr 08/22/24 20:32 08/22/24 20:00 08/23/24 05:20 Temperature 98.7 F 98.4 F Pulse Rate 77 71 Respiratory Rate 14 18 Blood Pressure 141/83 H 151/91 H Pulse Oximetry 97 99 Oxygen Delivery Room Air Oxygen Flow Rate Fraction of Inspired Oxygen 08/23/24 08:44 08/23/24 08:00 08/23/24 11:08 Temperature 97.9 F Pulse Rate 73 Respiratory Rate 20 Blood Pressure 188/96 H Pulse Oximetry 98 98 Oxygen Delivery Room Air Room Air Oxygen Flow Rate Fraction of Inspired Oxygen 21 08/23/24 13:07 08/23/24 14:35 Temperature 98.8 F 97.5 F L Pulse Rate 74 87 Respiratory Rate 16 16 Blood Pressure 166/95 H 131/75 Pulse Oximetry 98 100 Oxygen Delivery Room Air Simple Face Mask Oxygen Flow Rate 8 Fraction of Inspired Oxygen Intake/Output Intake/Output: Intake & Output 08/20/24 08/21/24 08/22/24 08/23/24 23:59 23:59 23:59 23:59 Intake Total 2147.9 98485.9 983.3 Output Total 100 3775 2400 Balance 2047.9 7917.9 -1416.7 Meds/Results Medications: Active Medications Generic Name Dose Route Start Last Admin Trade Name Freq PRN Reason Stop Dose Admin Acetaminophen 650 mg 08/21/24 14:21 Acetaminophen 325 Mg Tablet PO Q6H PRN Mild Pain (1-3) or Fever Hydrocodone Bitart/Acetaminophen 1 tab 08/21/24 18:11 08/23/24 09:09 Hydrocodone/Acetaminophen (*Crx) 5-325 Mg Tablet PO 1 tab Q4H PRN Administration Pain Rated 4-6 Amlodipine Besylate 10 mg 08/24/24 09:00 Amlodipine Besylate 10 Mg Tablet PO DAILY CHEN Atorvastatin Calcium 10 mg 08/21/24 21:00 08/22/24 20:44 Atorvastatin 10 Mg Tablet PO 10 mg QHS CHEN Administration Fentanyl Citrate 25 mcg 08/23/24 12:59 Fentanyl Citrate Inj (*Crx) 100 Mcg/2 Ml Vial IV PUSH Q2M PRN Pain Hydralazine HCl 10 mg 08/21/24 14:23 Hydralazine Hcl 20 Mg/Ml Vial IV PUSH Q8H PRN BP greater than 180/90 Ceftriaxone Sodium 1 gm in 50 mls @ 100 mls/hr 08/22/24 09:00 08/23/24 08:12 Rocephin 1 Gm/Ns 50 Ml IVPB 100 mls/hr Q24H CHEN Administration Sodium Chloride 1,000 mls @ 125 mls/hr 08/21/24 12:50 08/23/24 00:34 Normal Saline Iv IV CONT 125 mls/hr .Q8H CHEN Administration Lactated Ringer's 1,000 mls @ 30 mls/hr 08/23/24 11:10 08/23/24 14:35 Lr - Lactated Ringers Iv IV CONT Infused .Q24H CHEN Infusion Lactated Ringer's 1,000 mls @ 30 mls/hr 08/23/24 13:00 Lr - Lactated Ringers Iv IV CONT .Q24H CHEN Loratadine 10 mg 08/22/24 09:00 08/23/24 08:12 Loratadine 10 Mg Tablet PO 10 mg QAM CHEN Administration Morphine Sulfate 2 mg 08/21/24 18:11 08/21/24 18:23 Morphine Sulfate (*Crx) 2 Mg/Ml Inj IV PUSH 2 mg Q4H PRN Administration Pain Rated 7-10 Ondansetron HCl 4 mg 08/23/24 12:59 Ondansetron Inj 4 Mg/2 Ml Vial IV PUSH ONCE PRN Nausea Polyethylene Glycol 17 gm 08/21/24 18:51 Polyethylene Glycol 3350 17 Gm Powd.Pack PO QAM PRN Constipation Polyethylene Glycol 17 gm 08/22/24 12:55 08/23/24 08:10 Polyethylene Glycol 3350 17 Gm Powd.Pack PO Not Given QAM CHEN Senna/Docusate Sodium 1 tab 08/22/24 21:00 08/22/24 20:45 Senna/Docusate Sodium Tablet PO Not Given HS CHEN Tamsulosin HCl 0.4 mg 08/22/24 09:00 08/23/24 08:11 Tamsulosin Hcl 0.4 Mg Capsule PO 0.4 mg QAM CHEN Administration Radiology Results: ITS Impressions Abdomen/Pelvis CT 08/21/24 14:12 IMPRESSION: 1. Acute hematoma in the bladder. 2. Moderate right hydronephrosis and hydroureter and severe left hydronephrosis and hydroureter. 3. Severely enlarged prostate. 4. Pelvic lymphadenopathy suspicious for metastatic disease. Retroperitoneum Ultrasound 08/22/24 10:04 IMPRESSION: 1. Moderate bilateral hydronephrosis. 2. Small volume of hematoma in the bladder. 3. Severely enlarged prostate. Fluoroscopy 08/23/24 14:30 IMPRESSION: 1. Couple phleboliths in the left hemipelvis. See procedure note for further detail. Labs Labs: Laboratory Results - last 24 hr 08/22/24 08/23/24 08/23/24 13:22 06:25 09:49 WBC 9.8 RBC 3.64 L Hgb 11.1 L Hct 33.0 L MCV 90.7 MCH 30.5 MCHC 33.6 RDW 12.5 Plt Count 240 MPV 9.8 Immature Gran % (Auto) 0.6 H Neut % (Auto) 76.6 H Lymph % (Auto) 11.6 L [place] % (Auto) 9.9 H Eos % (Auto) 1.0 Baso % (Auto) 0.3 Lymph # (Auto) 1.13 [place] # (Auto) 1.0 H Eos # (Auto) 0.1 Baso # (Auto) 0.0 Abs Immat Gran (auto) 0.06 H Absolute Neuts (auto) 7.5 H Absolute Nucleated RBC 0.000 Nucleated RBC % 0.0 PT 13.8 INR 1.0 APTT 29.6 Sodium 139 Potassium 3.6 Chloride 109 H Carbon Dioxide 22 Anion Gap 8 BUN 40 H Creatinine 5.00 H Estim Creat Clear Calc 16 Estimated GFR 12 L Glucose 107 Calcium 8.4 Phosphorus 4.1 Magnesium 2.2 Total Bilirubin 0.5 AST 31 ALT 29 Alkaline Phosphatase 71 Total Protein 7.0 Albumin 3.6 Stl Occult Blood (IFOB) Negative Tot Complement (CH50) >60 H Quality VTE Prophylaxis VTE prophylaxis: mechanical ordered
--- NOTE | 2024-08-23 15:47 | W.PM.PROC2 ---
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 Cystoscopy was undertaken with a 16 F flexible cystoscope. He has no urethral stricture and, somewhat surprisingly (based on the CT scan findings) his prostatic urethra is normal and measures only approximately 1.5-2 cm in length. He has minimal lateral lobe hyperplasia without a median lower. Much greater significance, however, is a massive urothelial carcinoma involving his bladder. This is a multicentric mass which involves 80%-90% of his bladder lumen. I can see that there multiple sites of implantation including the most dominant mass with sits at the bladder base and occludes the bladder outlet. Many of these implants appeared to be sessile/invasive in nature. despite an exhaustive attempt I was unable to find either ureteral orifice. I did use a 24 F resectoscope to obtain tissue for diagnosis from several different sites. The base and periphery the sites were cauterized with the loop electrode and rollerball. A small of clot was evacuated. At the termination I placed a 24 F hematuria catheter with continuous bladder irrigation. The patient tolerated the procedure well was taken recovery room in good condition. Drains Yes Packing No Pathology None sent
[2024-08-23] MEDS: SENNA/DOCUSATE SODIUM TABLET 1 TAB PO (20:36)
[2024-08-23] MEDS: ATORVASTATIN 10 MG TABLET PO (20:36)
[2024-08-24 05:23] VITALS: BP 158/90; PULSE 91; RESP 18; TEMP 36.4; O2SAT 98
[2024-08-24 06:50] LABS: Basophils Percent Auto 0.3 % (0.2-1.2); Eosinophils Percent Auto 0.3 % (0-4.4); Hematocrit 28.1 % (42.0-52.0); Hemoglobin 9.6 g/dL (14.0-18.0); Immature Granulocyte Absolute 0.03 K/mm3 (0.00-0.031); Immature Granulocyte Percent A 0.4 % (0-0.5); Lymphocytes Absolute Auto 0.74 K/mm3 (0.9-3.2); Mean Corpuscular HGB Conc 34.2 g/dl (32-36); Mean Corpuscular Hemoglobin 31.5 pg (26-34); Mean Corpuscular Volume 92.1 fl (80-100); Mean Platelet Volume 10.5 fl (7.4-10.4); Monocytes Absolute Auto 0.7 K/mm3 (0.1-0.6); Monocytes Percent Auto 9.1 % (2.6-8.5); Neutrophils Absolute Auto 5.9 K/mm3 (1.3-6.7); Neutrophils Percent Auto 79.9 % (45.5-73.1); Platelet Count Result 226 k/mm3 (150-375); Red Blood Count 3.05 M/mm3 (4.6-6.20); Red Cell Distribution Width 12.9 % (11.5-14.5); White Blood Count 7.4 K/mm3 (4.5-10.0)
--- NOTE | 2024-08-24 06:56 | PM.IMPN ---
Progress Note: A&P Assessment and Plan (1) Acute renal failure: Code(s): N17.9 - Acute kidney failure, unspecified Status: Acute Assessment and Plan: Concerns for pre-renal etiology from no oral intake for the last two days as well as possible AIN from antibiotic versus NSAID. Patient has proteinuria and casts presents on UA. No eosinophils presents on CBC, urine eosinophil pending. There is also an obstructive uropathy from the large clot burden in the bladder. - bladder scan in ED showed retained 500 mL post-void. Ogden placed and Flomax initiated, will need outpatient urology follow-up. - CT abd/pelvis w/o con 1. Acute hematoma in the bladder. 2. Moderate right hydronephrosis and hydroureter and severe left hydronephrosis and hydroureter. 3. Severely enlarged prostate. 4. Pelvic lymphadenopathy suspicious for metastatic disease. - CK was 57 - urine sodium, protein/creatinine and other studies pending - UA showed 3+ protein and 3+ blood - NS at 125 ml per hour. Cr did not improve despite fluids. - monitor I&Os - stop felipe inhibitors and diuretics as appropriate (on lisinopril-HCTZ). No NSAIDs. Avoid other nephrotoxins. Renally dose medications. - renal ultrasound showed moderate bilateral hydronephrosis, small hematoma in the bladder, and severely enlarged prostate. 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 Stents were unable to be placed because of this. The patient requires transfer to a higher level of care. [facility] hospitalist team has accepted and Urology will follow once there. Currently we are awaiting bedplacement. - Urology consult ordered, recs appreciated (2) UTI (urinary tract infection): Qualifiers: Hematuria presence: with hematuria Urinary tract infection type: acute cystitis Qualified Code(s): N30.01 - Acute cystitis with hematuria Code(s): N39.0 - Urinary tract infection, site not specified Status: Suspected Assessment and Plan: - did not meet SIRS criteria - recent outpatient abx Cipro BID x5 days on 08/12 - no leukocytosis, CRP 4.2 - UA: Turbid, 3+ protein, trace ketones, 3+ blood, 2+ leuks, greater than 100 RBC and WBC, occasional epithelial cells, 3+ bacteria - UC negative - previous micro reviewed, culture from 08/12/2024 showed no growth. - started on Ceftriaxone on 08/21 (3) Urinary retention: Code(s): R33.9 - Retention of urine, unspecified Status: Acute Assessment and Plan: - Ogden placed - monitor I&Os - Flomax initiated - urology consulted - suspect lower obstruction secondary to BPH. He also reports not having a bowel movement since Monday. Constipation may be contributing. Bowel regimen ordered. (4) Hematoma of bladder wall: Qualifiers: Encounter type: initial encounter Qualified Code(s): S37.22XA - Contusion of bladder, initial encounter Code(s): S37.22XA - Contusion of bladder, initial encounter Status: Acute Assessment and Plan: - CT abd/pelvis: acute hematoma in the bladder with lymphadenopathy - urology consulted for retention and new bladder hematoma seen on CT. - Continue CBI. Ogden with tiara colored urine - Large bladder tumor found on cysto. No stents were able to be placed. Biopsy was taken. (5) HTN (hypertension): Qualifiers: Hypertension type: primary hypertension Qualified Code(s): I10 - Essential (primary) hypertension Code(s): I10 - Essential (primary) hypertension Status: Chronic Assessment and Plan: - chronic, currently 158/108 - home medications: hold lisinopril-HCTZ given current renal failure, add hydralazine prn for BP greater than 180/90. - started amlodipine 5 mg daily on 08/22. Increased to 10 mg daily today given persistent HTN. (6) Anemia: Code(s): D64.9 - Anemia, unspecified Status: Acute Assessment and Plan: Hemoglobin on admission was 12.5 g/dl. On 08/07 hgb was 14.1 g/dl. Steadily hgb has been declining. likely 2/2 hematuria with large bladder cancer, acute renal failure iron studies show normal Iron with a low saturation, add vitamin B12 and folic acid occult stool was negative monitor H/H, transfuse less than 7 g/dl Plan Diet: Renal GI Prophylaxis: Not currently indicated DVT Prophylaxis: SCDs Lines: Peripheral Code Status: Full code Subjective Date/time seen: 08/24/24 06:56 Interval history: Patient has been accepted to [facility] under hospitalist Dr Zazueta with urology consult to follow. Currently we are awaiting bed placement. Review of Systems Review of Systems: All systems reviewed & are unremarkable except as noted in HPI and below Exam Narrative: General: appears comfortable, in no acute distress Respiratory: breathing is unlabored with even chest rise/fall, lungs are clear without wheezing, rhonchi, and crackles Cardiovascular: Rate and rhythm regular, normal s1s2, no murmur Abdomen: Soft, round, non-tender, active bowel sounds Extremities: No cyanosis, edema, clubbing. Pulses 2/2 Neuro: A&O x 4 Skin: Warm, dry, intact, slight jaundice Objective Data Vital Signs Vital Signs: Vital Signs - 24 hr 08/23/24 08:44 08/23/24 08:00 08/23/24 11:08 Temperature 97.9 F Pulse Rate 73 Respiratory Rate 20 Blood Pressure 188/96 H Pulse Oximetry 98 98 Oxygen Delivery Room Air Room Air Oxygen Flow Rate Fraction of Inspired Oxygen 21 08/23/24 13:07 08/23/24 14:35 08/23/24 14:50 Temperature 98.8 F 97.5 F L Pulse Rate 74 87 87 Respiratory Rate 16 16 18 Blood Pressure 166/95 H 131/75 140/89 Pulse Oximetry 98 100 99 Oxygen Delivery Room Air Simple Face Mask Simple Face Mask Oxygen Flow Rate 8 8 Fraction of Inspired Oxygen 08/23/24 15:05 08/23/24 15:20 08/23/24 15:35 Temperature Pulse Rate 84 78 77 Respiratory Rate 18 16 18 Blood Pressure 149/95 H 156/97 H 150/92 H Pulse Oximetry 97 98 97 Oxygen Delivery Room Air Room Air Room Air Oxygen Flow Rate Fraction of Inspired Oxygen 08/23/24 15:49 08/23/24 21:21 08/23/24 20:00 Temperature 98.1 F Pulse Rate 85 89 Respiratory Rate 18 14 Blood Pressure 158/99 H 157/97 H Pulse Oximetry 98 97 Oxygen Delivery Room Air Room Air Oxygen Flow Rate Fraction of Inspired Oxygen 08/24/24 05:23 Temperature 97.6 F Pulse Rate 91 Respiratory Rate 18 Blood Pressure 158/90 H Pulse Oximetry 98 Oxygen Delivery Oxygen Flow Rate Fraction of Inspired Oxygen Intake/Output Intake/Output: Intake & Output 08/21/24 08/22/24 08/23/24 08/24/24 23:59 23:59 23:59 23:59 Intake Total 2147.9 87542.9 2685.4 400 Output Total 100 3775 8775 1600 Balance 2047.9 7917.9 -6089.6 -1200 Meds/Results Medications: Active Medications Generic Name Dose Route Start Last Admin Trade Name Freq PRN Reason Stop Dose Admin Acetaminophen 650 mg 08/21/24 14:21 Acetaminophen 325 Mg Tablet PO Q6H PRN Mild Pain (1-3) or Fever Hydrocodone Bitart/Acetaminophen 1 tab 08/21/24 18:11 08/23/24 09:09 Hydrocodone/Acetaminophen (*Crx) 5-325 Mg Tablet PO 1 tab Q4H PRN Administration Pain Rated 4-6 Amlodipine Besylate 10 mg 08/24/24 09:00 Amlodipine Besylate 10 Mg Tablet PO DAILY CHEN Atorvastatin Calcium 10 mg 08/21/24 21:00 08/23/24 20:36 Atorvastatin 10 Mg Tablet PO 10 mg QHS CHEN Administration Fentanyl Citrate 25 mcg 08/23/24 12:59 Fentanyl Citrate Inj (*Crx) 100 Mcg/2 Ml Vial IV PUSH Q2M PRN Pain Hydralazine HCl 10 mg 08/21/24 14:23 Hydralazine Hcl 20 Mg/Ml Vial IV PUSH Q8H PRN BP greater than 180/90 Ceftriaxone Sodium 1 gm in 50 mls @ 100 mls/hr 08/22/24 09:00 08/23/24 08:12 Rocephin 1 Gm/Ns 50 Ml IVPB 08/27/24 22:00 100 mls/hr Q24H CHEN Administration Sodium Chloride 1,000 mls @ 125 mls/hr 08/21/24 12:50 08/24/24 05:13 Normal Saline Iv IV CONT Not Given .Q8H CHEN Lactated Ringer's 1,000 mls @ 30 mls/hr 08/23/24 11:10 08/23/24 14:35 Lr - Lactated Ringers Iv IV CONT Infused .Q24H CHEN Infusion Lactated Ringer's 1,000 mls @ 30 mls/hr 08/23/24 13:00 08/23/24 15:39 Lr - Lactated Ringers Iv IV CONT Infused .Q24H CHEN Infusion Loratadine 10 mg 08/22/24 09:00 08/23/24 08:12 Loratadine 10 Mg Tablet PO 10 mg QAM CHEN Administration Morphine Sulfate 2 mg 08/21/24 18:11 08/21/24 18:23 Morphine Sulfate (*Crx) 2 Mg/Ml Inj IV PUSH 2 mg Q4H PRN Administration Pain Rated 7-10 Ondansetron HCl 4 mg 08/23/24 12:59 Ondansetron Inj 4 Mg/2 Ml Vial IV PUSH ONCE PRN Nausea Polyethylene Glycol 17 gm 08/21/24 18:51 Polyethylene Glycol 3350 17 Gm Powd.Pack PO QAM PRN Constipation Polyethylene Glycol 17 gm 08/22/24 12:55 08/23/24 08:10 Polyethylene Glycol 3350 17 Gm Powd.Pack PO Not Given QAM CHEN Senna/Docusate Sodium 1 tab 08/22/24 21:00 08/23/24 20:36 Senna/Docusate Sodium Tablet PO 1 tab HS CHEN Administration Tamsulosin HCl 0.4 mg 08/22/24 09:00 08/23/24 08:11 Tamsulosin Hcl 0.4 Mg Capsule PO 0.4 mg QAM CHEN Administration Radiology Results: ITS Impressions Abdomen/Pelvis CT 08/21/24 14:12 IMPRESSION: 1. Acute hematoma in the bladder. 2. Moderate right hydronephrosis and hydroureter and severe left hydronephrosis and hydroureter. 3. Severely enlarged prostate. 4. Pelvic lymphadenopathy suspicious for metastatic disease. Retroperitoneum Ultrasound 08/22/24 10:04 IMPRESSION: 1. Moderate bilateral hydronephrosis. 2. Small volume of hematoma in the bladder. 3. Severely enlarged prostate. Fluoroscopy 08/23/24 14:30 IMPRESSION: 1. Couple phleboliths in the left hemipelvis. See procedure note for further detail. Labs Labs: Laboratory Results - last 24 hr 08/22/24 08/23/24 08/23/24 13:22 06:25 09:49 PT 13.8 INR 1.0 APTT 29.6 Stl Occult Blood (IFOB) Negative Tot Complement (CH50) >60 H Quality VTE Prophylaxis VTE prophylaxis: mechanical ordered
[2024-08-24 07:09] LABS: Alanine Aminotransferase 23 U/L (6-50); Albumin Level 3.1 g/dL (3.5-5.1); Alkaline Phosphatase 62 U/L (38-126); Anion Gap 7 mmol/L (4-12); Aspartate Amino Transferase 23 U/L (17-59); Bilirubin,Total 0.3 mg/dL (0.2-1.3); Blood Urea Nitrogen 37 mg/dL (9-20); Calcium 7.9 mg/dL (8.4-10.2); Carbon Dioxide 22 mmol/L (22-30); Chloride 111 mmol/L (98-107); Estimated CRCL calculation 18 ml/min; Estimated Glomerular Filt Rate 13; Glucose 144 mg/dL (65-110); Potassium 3.5 mmol/L (3.4-5.0); Sodium 140 mmol/L (137-145)
[2024-08-24] MEDS: TAMSULOSIN HCL 0.4 MG CAPSULE PO (08:25)
[2024-08-24] MEDS: amLODIPine BESYLATE 10 MG TABLET PO (08:25)
[2024-08-24] MEDS: LORATADINE 10 MG TABLET PO (08:26)
[2024-08-24 09:13] LABS: Anti Streptolysin O Screen 106 IU/mL (<200)
[2024-08-24] MEDS: HYDROcodone/acetaminophen (*CRX) 5-325 MG TABLET 1 TAB PO (10:54)
--- NOTE | 2024-08-24 11:48 | PC.NURSE ---
On 08/24/24, the ORTHO ASSISTANT, Minerva Patterson, provided care and completed [facility] documentation on this patient. I have reviewed the ORTHO ASSISTANT's documentation and agree with the findings.
--- NOTE | 2024-08-24 13:30 | PM.TDS ---
Transfer Discharge Sum: Prov Provider Date of admission: 08/22/24 09:43 Primary care physician: Luana Merchant NP Admitting clinician: Santa Parikh MD Consults: 08/21/24 Consult to Physician Routine Comment: spoke to office @2238 (,us) Consulting Provider: Kyrie Landa train caller/MD group to consult: urology Reason for consultation: bladder hematoma, urinary retention Has provider been notified: Yes DS: Admitting Diagnosis Discharge Date 08/24/24 Admitting Diagnosis hematuria DS: Discharge Diagnosis Discharge Diagnosis (1) Acute renal failure: Code(s): N17.9 - Acute kidney failure, unspecified Status: Acute (2) UTI (urinary tract infection): Qualifiers: Urinary tract infection type: acute cystitis Hematuria presence: with hematuria Qualified Code(s): N30.01 - Acute cystitis with hematuria Code(s): N39.0 - Urinary tract infection, site not specified Status: Suspected (3) Urinary retention: Code(s): R33.9 - Retention of urine, unspecified Status: Acute (4) Hematoma of bladder wall: Qualifiers: Encounter type: initial encounter Qualified Code(s): S37.22XA - Contusion of bladder, initial encounter Code(s): S37.22XA - Contusion of bladder, initial encounter Status: Acute (5) HTN (hypertension): Qualifiers: Hypertension type: primary hypertension Qualified Code(s): I10 - Essential (primary) hypertension Code(s): I10 - Essential (primary) hypertension Status: Chronic (6) Anemia: Code(s): D64.9 - Anemia, unspecified Status: Acute Plan Assessment and Plan (1) Acute renal failure: Code(s): N17.9 - Acute kidney failure, unspecified Status: Acute Assessment and Plan: Concerns for pre-renal etiology from no oral intake for the last two days as well as possible AIN from antibiotic versus NSAID. Patient has proteinuria and casts presents on UA. No eosinophils presents on CBC, urine eosinophil pending. There is also an obstructive uropathy from the large clot burden in the bladder. - bladder scan in ED showed retained 500 mL post-void. Ogden placed and Flomax initiated, will need outpatient urology follow-up. - CT abd/pelvis w/o con 1. Acute hematoma in the bladder. 2. Moderate right hydronephrosis and hydroureter and severe left hydronephrosis and hydroureter. 3. Severely enlarged prostate. 4. Pelvic lymphadenopathy suspicious for metastatic disease. - CK was 57 - urine sodium, protein/creatinine and other studies pending - UA showed 3+ protein and 3+ blood - NS at 125 ml per hour. Cr did not improve despite fluids. - monitor I&Os - stop felipe inhibitors and diuretics as appropriate (on lisinopril-HCTZ). No NSAIDs. Avoid other nephrotoxins. Renally dose medications. - renal ultrasound showed moderate bilateral hydronephrosis, small hematoma in the bladder, and severely enlarged prostate. 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 Stents were unable to be placed because of this. The patient requires transfer to a higher level of care. [facility] hospitalist team has accepted and Urology will follow once there. Currently we are awaiting bedplacement. - Urology consult ordered, recs appreciated (2) UTI (urinary tract infection): Qualifiers: Hematuria presence: with hematuria Urinary tract infection type: acute cystitis Qualified Code(s): N30.01 - Acute cystitis with hematuria Code(s): N39.0 - Urinary tract infection, site not specified Status: Suspected Assessment and Plan: - did not meet SIRS criteria - recent outpatient abx Cipro BID x5 days on 08/12 - no leukocytosis, CRP 4.2 - UA: Turbid, 3+ protein, trace ketones, 3+ blood, 2+ leuks, greater than 100 RBC and WBC, occasional epithelial cells, 3+ bacteria - UC negative - previous micro reviewed, culture from 08/12/2024 showed no growth. - started on Ceftriaxone on 08/21 (3) Urinary retention: Code(s): R33.9 - Retention of urine, unspecified Status: Acute Assessment and Plan: - Ogden placed - monitor I&Os - Flomax initiated - urology consulted - suspect lower obstruction secondary to BPH. He also reports not having a bowel movement since Monday. Constipation may be contributing. Bowel regimen ordered. (4) Hematoma of bladder wall: Qualifiers: Encounter type: initial encounter Qualified Code(s): S37.22XA - Contusion of bladder, initial encounter Code(s): S37.22XA - Contusion of bladder, initial encounter Status: Acute Assessment and Plan: - CT abd/pelvis: acute hematoma in the bladder with lymphadenopathy - urology consulted for retention and new bladder hematoma seen on CT. - Continue CBI. Ogden with tiara colored urine - Large bladder tumor found on cysto. No stents were able to be placed. Biopsy was taken. (5) HTN (hypertension): Qualifiers: Hypertension type: primary hypertension Qualified Code(s): I10 - Essential (primary) hypertension Code(s): I10 - Essential (primary) hypertension Status: Chronic Assessment and Plan: - chronic, currently 158/108 - home medications: hold lisinopril-HCTZ given current renal failure, add hydralazine prn for BP greater than 180/90. - started amlodipine 5 mg daily on 08/22. Increased to 10 mg daily today given persistent HTN. (6) Anemia: Code(s): D64.9 - Anemia, unspecified Status: Acute Assessment and Plan: Hemoglobin on admission was 12.5 g/dl. On 08/07 hgb was 14.1 g/dl. Steadily hgb has been declining. likely 2/2 hematuria with large bladder cancer, acute renal failure iron studies show normal Iron with a low saturation, add vitamin B12 and folic acid occult stool was negative monitor H/H, transfuse less than 7 g/dl Plan Diet: Renal GI Prophylaxis: Not currently indicated DVT Prophylaxis: SCDs Lines: Peripheral Code Status: Full code Transfer Discharge Sum: Med Medications Active and Home Medications: Home Medications lisinopril 20 mg-hydrochlorothiazide 12.5 mg tablet 1 tablet PO DAILY #90 tabs 05/30/24 [Rx Confirmed 08/21/24] atorvastatin 10 mg tablet 10 mg PO QHS #90 tabs 08/12/24 [Rx Confirmed 08/21/24] cetirizine 10 mg tablet (Zyrtec) 10 mg PO DAILY 08/21/24 [History Confirmed 08/21/24] Transfer Discharge Sum: Hosp Hospital Course Hospital course: 54 y/o M presents here with flank pain with PMH of HTN, HLD, and kidney stones. The patient presents here from home for further evaluation of right flank pain. He reports onset approximately 3-4 days ago. Accompanied by suprapubic abdominal pain, frequent urination, difficulty initiating stream, constipation. Last BM was 4-5 days ago, has had reduced appetite in the last few days, did pass very small BM this evening. Denies fever, chills, body chills, or diarrhea. Patient originally sought care with his PCP on 08/12/2024 for similar complaints including urinary issues, hematuria, urinary frequency, and suprapubic pain intermittently. UA showed UTI, however urine culture was negative. He was started on Cipro b.i.d. x5 days. The patient reports he had taken 7 doses before he was contacted that the UC was negative. Recent Cologuard was negative. No family history of cancer. Initial VS at presentation: 97.8? F, HR 88, RR 16, 171/100, and 100% on RA. ED workup showed: No leukocytosis, hemoglobin 12.5 (previously 14.1, creatinine 5.2 and GFR 12 (previously 1.2 and normal GFR on 08/07/2024), and UA suspicious for UTI. The patient was admitted with urology and nephrology consult for acute renal failure and hematuria requiring catheter with continuous bladder irrigation. Renal ultrasound showed moderate bilateral hydronephrosis with a small volume of hematoma in the bladder, and a severely enlarged prostate. His creatinine remained essentially unchanged despite IV fluids. Urology took him to the OR on 08/23 for a cystoscopy with plans to place ureteral stents. Unfortunately a large unresectable bladder tumor was discovered and stents were unable to be placed. Tissue biopsy was preformed. Dr Vargas with urology recommended urgent transfer to tertiary care center at [facility] for bladder removal. Nephrology consult was cancelled given need for higher level of care. The patients hemoglobin was steadily declining and this was felt to be from hematuria, nutritional deficiency, acute renal failure, and a degree of dilution given high volume of IV fluids. He remained hemodynamically stable. Hospitalist at [facility] was contacted the evening of 08/23 and accepted the patient for transfer. On 08/24/2024 the patient was transferred via EMS in stable condition. Time Spent with Patient Time attestation: Total time spent providing and/or coordinating transfer services: 90 Exam Narrative: General: appears comfortable, in no acute distress Respiratory: breathing is unlabored with even chest rise/fall, lungs are clear without wheezing, rhonchi, and crackles Cardiovascular: Rate and rhythm regular, normal s1s2, no murmur Abdomen: Soft, round, non-tender, active bowel sounds Extremities: No cyanosis, edema, clubbing. Pulses 2/2 Neuro: A&O x 4 Skin: Warm, dry, intact, slight jaundice DS: Data Data Completed and Pending Pending studies at discharge: Pending at discharge 08/23/24 13:24 Surgical [PTH] Routine 08/23/24 13:27 Surgical [PTH] Routine 08/23/24 14:07 Surgical [PTH] Routine 08/23/24 14:09 Surgical [PTH] Routine Labs on day of discharge: Labs from last 24 hours 08/24/24 08/24/24 08/22/24 05:51 05:48 13:22 WBC 7.4 RBC 3.05 L Hgb 9.6 L Hct 28.1 L MCV 92.1 MCH 31.5 MCHC 34.2 RDW 12.9 Plt Count 226 MPV 10.5 H Immature Gran % (Auto) 0.4 Neut % (Auto) 79.9 H Lymph % (Auto) 10.0 L Angelina % (Auto) 9.1 H Eos % (Auto) 0.3 Baso % (Auto) 0.3 Lymph # (Auto) 0.74 L Angelina # (Auto) 0.7 H Eos # (Auto) 0.0 Baso # (Auto) 0.0 Abs Immat Gran (auto) 0.03 Absolute Neuts (auto) 5.9 Absolute Nucleated RBC 0.000 Nucleated RBC % 0.0 Sodium 140 Potassium 3.5 Chloride 111 H Carbon Dioxide 22 Anion Gap 7 BUN 37 H Creatinine 4.60 H Estim Creat Clear Calc 18 Estimated GFR 13 L Glucose 144 H Calcium 7.9 L Ferritin Pending Total Bilirubin 0.3 AST 23 ALT 23 Alkaline Phosphatase 62 Total Protein 6.0 L Albumin 3.1 L Vitamin B12 Pending Folate Pending Tot Complement (CH50) >60 H Anti-Streptolysin Scrn 08/22/24 13:21 WBC RBC Hgb Hct MCV MCH MCHC RDW Plt Count MPV Immature Gran % (Auto) Neut % (Auto) Lymph % (Auto) Angelina % (Auto) Eos % (Auto) Baso % (Auto) Lymph # (Auto) Angelina # (Auto) Eos # (Auto) Baso # (Auto) Abs Immat Gran (auto) Absolute Neuts (auto) Absolute Nucleated RBC Nucleated RBC % Sodium Potassium Chloride Carbon Dioxide Anion Gap BUN Creatinine Estim Creat Clear Calc Estimated GFR Glucose Calcium Ferritin Total Bilirubin AST ALT Alkaline Phosphatase Total Protein Albumin Vitamin B12 Folate Tot Complement (CH50) Anti-Streptolysin Scrn 106
[2024-08-26 17:11] LABS: Folic Acid 5.6 ng/mL (2.76->20)
[2024-08-27 14:42] LABS: ANCA Screen NEGATIVE (NEGATIVE); Anti Glomerular Basement Memb <1.0 AI
== END 2024-08-24 11:15 | disposition short-term general hospital (02) | DRG 669 ==
LOC: ANHED 11:34 → ANH3MEDSUR 13:49
PROVIDERS: Physician Assistant; Student in an Organized Health Care Education/Training Program; Urology; Admitting Provider Hospitalist; Emergency Provider Emergency Medicine; PCP Nurse Practitioner; Visit Provider Nurse Practitioner Acute Care
PROC: 0TCB8ZZ Extirpation of Matter from Bladder, Via Natural or Artificial Opening Endoscopic (ICD-10-PCS; CPT 52001; principal; 2024-08-23 14:00)
DX: C67.8 Malignant neoplasm of overlapping sites of bladder (principal); N17.9 Acute kidney failure, unspecified; N39.0 Urinary tract infection, site not specified; R33.9 Retention of urine, unspecified; I10 Essential (primary) hypertension; E78.5 Hyperlipidemia, unspecified; F17.210 Nicotine dependence, cigarettes, uncomplicated; Z87.442 Personal history of urinary calculi
CPT/HCPCS: 36415; 74176; 76770; 80053; 82274; 82550; 82607; 82728; 82746; 83520; 83540; 83550; 83690; 83735; 83930; 84100; 85025; 85610; 85730; 86036; 86038; 86039; 86060; 86140; 86160; 86162; 87086; 88305; 88331; 88342; 96361; 96365; 96375; 96376; 99199; 99285; A9270; C1758; C2617; G0378; J0696; J1100; J2250; J2270; J2405; J2704; J3010; J7030; J7120